=== PATIENT | female | born 2000 | race Caucasian/White ===

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

== ENCOUNTER 2024-04-25 12:09 | Emergency (ER) | payer OTHER, SELFPAY ==
--- NOTE | ~2024-04-25 | XR_ITS ---
EXAMINATION: XR chest 2V DATE: 04/25/2024 14:06 INDICATION: Cough and chest tightness TECHNIQUE: PA and lateral views of the chest were obtained. COMPARISON: None FINDINGS: The lungs are clear with no focal airspace opacities, pulmonary edema, pleural effusion or pneumothor ax. The cardiomediastinal silhouette is normal. Visualized bones and soft tissues are unremarkable. IMPRESSION: 1. No acute cardiopulmonary disease. Reviewed, dictated and finalized at location B. L MANAGER
[2024-04-25 12:13] VITALS: BP 153/104; PULSE 119; RESP 18; TEMP 37.1; O2SAT 99
--- NOTE | 2024-04-25 12:46 | ED_ITS ---
HPI - URI/Sore Throat General Chief Complaint: Upper Respiratory Infection Stated Complaint: URI Time Seen by Provider: 04/25/24 12:46 Focused HPI: This is a 23 year old female that presents to the ER for shortness of breath. Reports chest tightness. Ongoing over the last couple of days. Reports a cough, fever. GENERAL: Well-appearing, well-nourished, and in no acute distress. HEAD: Normocephalic, atraumatic. CHEST: Lung sounds coarse. No respiratory distress. HEART: Regular rate and rhythm.? NEURO: ?Alert and oriented x3. Patient screened in triage and initial orders placed.? ?Additional care and disposition to be based upon?diagnostic testing and treatment. Related Data Allergies Allergy/AdvReac Type Severity Reaction Status Date / Time nickel Allergy Unknown Anaphylaxis Verified 10/05/21 19:22 amoxicillin Allergy Anaphylaxis Verified 10/05/21 19:22 Penicillins Allergy Anaphylaxis Verified 10/05/21 19:22 Review of Systems 2 Review of Systems: CONSTITUTIONAL: Reports fever ENT: Reports congestion RESPIRATORY: Reports cough and dyspnea. All systems reviewed & are unremarkable except as noted in HPI and below PMFSH Past Medical History Medical History (Updated 04/25/24 @ 15:07 by Jazmín Peters PA-C) Healthy female adult Surgical History Surgical History (Updated 10/05/21 @ 19:22 by Jesse Abdullahi MD) History of tonsillectomy Exam 2 Narrative: GENERAL: Well-appearing, well-nourished, and in no acute distress. HEAD: Normocephalic, atraumatic. EYES: EOMI. CHEST: No respiratory distress. Lung sounds coarse, clears with coughing. No rales or rhonchi HEART: Regular rate and rhythm. No murmur heard. Normal peripheral pulses. EXTREMITIES: Normal range of motion. No edema. SKIN: Warm, dry, no rash. NEURO: No focal deficits. Alert and oriented x3. PSYCH: Normal mood and affect Course Course Emergency Course: patient updated on workup and agrees with plan of care Vital Signs Vital signs: Vital Signs Temperature 98.8 F 04/25/24 12:13 Pulse Rate 119 H 04/25/24 12:13 Respiratory Rate 18 04/25/24 12:13 Blood Pressure 153/104 H 04/25/24 12:13 Pulse Oximetry 99 04/25/24 12:13 Temperature 97.6 F 04/25/24 15:07 Pulse Rate 99 04/25/24 15:07 Respiratory Rate 16 04/25/24 15:07 Blood Pressure 149/98 H 04/25/24 15:07 Pulse Oximetry 100 04/25/24 15:07 MDM - URI/Sore Throat MDM Narrative Medical decision making narrative: Patient presents to the ER for cold symptoms present over the last couple of days. She is afebrile and nontoxic appearing. Oxygen saturation is normal on room air. Tachycardic upon arrival. This normalized without intervention. CBC with mild leukocytosis. Metabolic panel with mild transaminitis. COVID test is positive, likely source of liver enzyme elevation. Chest x-ray without acute cardiopulmonary abnormality. Patient updated on her workup and agrees with plan of care. Instructed on further care of viral infection. She is to follow up with primary provider. She was given warnings to return to the ER Differential Diagnosis Differential diagnosis: Likely upper respiratory infection, sinusitis, viral infection, bronchitis, influenza and other (COVID) Lab Data Attestation: I reviewed the patient's lab results. 04/25/24 13:40 04/25/24 13:40 Labs: Lab Results 04/25/24 04/25/24 Range/Units 12:14 13:40 WBC 11.3 H (4.5-10.0) K/mm3 RBC 4.70 (4.2-5.4) M/mm3 Hgb 13.9 (12.0-15.0) g/dL Hct 42.2 (37.0-47.0) % MCV 89.8 (80-100) fl MCH 29.6 (26-34) pg MCHC 32.9 (32-36) g/dl RDW 13.4 (11.5-14.5) % Plt Count 345 (150-375) k/mm3 MPV 8.9 (7.4-10.4) fl Immature Gran % (Auto) 0.4 (0-0.5) % Neut % (Auto) 73.7 H (45.5-73.1) % Lymph % (Auto) 18.8 (18.3-44.2) % Cowley % (Auto) 4.9 (2.6-8.5) % Eos % (Auto) 1.8 (0-4.4) % Baso % (Auto) 0.4 (0.2-1.2) % Lymph # (Auto) 2.13 (0.9-3.2) K/mm3 Cowley # (Auto) 0.6 (0.1-0.6) K/mm3 Eos # (Auto) 0.2 (0-0.3) K/mm3 Baso # (Auto) 0.1 (0.0-0.1) K/mm3 Abs Immat Gran (auto) 0.04 H (0.00-0.031) K/mm3 Absolute Neuts (auto) 8.4 H (1.3-6.7) K/mm3 Absolute Nucleated RBC 0.000 (0.0-0.012) K/mm3 Nucleated RBC % 0.0 (0.0-0.2) % Sodium 141 (137-145) mmol/L Potassium 4.0 (3.4-5.0) mmol/L Chloride 106 (98-107) mmol/L Carbon Dioxide 23 (22-30) mmol/L Anion Gap 12 (4-12) mmol/L BUN 9 (7-17) mg/dL Creatinine 0.50 L (0.7-1.0) mg/dL Estim Creat Clear Calc Not Reportable Estimated GFR > 60 (59 - ) Glucose 132 H (65-110) mg/dL Calcium 9.5 (8.4-10.2) mg/dL Total Bilirubin 0.5 (0.2-1.3) mg/dL AST 54 H (14-36) U/L ALT 64 H (6-35) U/L Alkaline Phosphatase 103 (38-126) U/L Troponin I < 0.012 (0.000-0.034) ng/mL Total Protein 8.0 (6.3-8.2) g/dL Albumin 4.5 (3.5-5.1) g/dL Influenza A (RT-PCR) Negative (Negative) Influenza B (RT-PCR) Negative (Negative) RSV (RT-PCR) Negative (Negative) SARS-CoV-2 RNA (RT-PCR) Positive A (Negative) Imaging Data Radiologist's impression: ITS Impressions Chest X-Ray 04/25/24 14:24 IMPRESSION: 1. No acute cardiopulmonary disease. ECG Data EKG #1: ECG completion date: 04/25/24 EKG Interpretation: tachycardia, sinus rhythm, no ST changes and normal QT Critical Care Time Critical Care Time Critical Care Time: No Discharge Plan Discharge Clinical Impression: COVID-19 Patient Disposition: Home, Self-Care Condition: Stable Instructions: Acute Bronchitis (ED), COVID-19 (Coronavirus Disease 2019) (ED), How to Recover from COVID-19 at Home (ED) Additional Instructions: Return to the emergency department for worsening symptoms, or any other concerns Remain well-hydrated, get plenty of rest. Take Tylenol or Motrin [id number] for pain as needed. Flonase for nasal congestion. Zyrtec for runny nose. Lozenges or Chloraseptic spray for sore throat. Albuterol 2 puffs every 4-6 hours as needed for shortness of breath or wheezing. Take oral steroid as prescribed Follow up with your primary care doctor Patient Language: Hungarian Prescriptions: New prednisone 20 mg tablet 40 mg PO DAILY 5 Days Qty: 10 0RF albuterol sulfate [Ventolin HFA] 90 mcg/actuation HFA aerosol inhaler 2 puff inhalation QID PRN (Reason: shortness of breath or wheezing) Qty: 8.5 0RF No Action naproxen 500 mg tablet 500 mg PO BID Qty: 14 0RF Follow-up/Referrals: Renny,Joel Chang MD [Primary Care Provider] -
--- NOTE | 2024-04-25 12:47 | ECG_ITS ---
Test Date: 2024-04-25 13:40:12 Measurements Intervals [place] Rate: 111 P: 0 GA: 0 QRS: 54 QRSD: 97 T: 3 QT: 336 QTc: 457 Interpretive Statements SINUS TACHYCARDIA No previous ECG available for comparison Electronically Signed On 04-25-2024 14:33:35 STATEMENT CLERKS SUPERVISOR by Attila Leon M.D.
--- OUTSIDE RECORDS SUMMARY | 2024-04-25 12:56 | XMS_ITS | Clinical Summary ---
Author Organization [facility] Address [address] [place] [address] Care Team Providers Care Supervisor Accounts Receivable Name Role Phone Carol Ann Ibanez MD Unavailable [phone] Carol Ann Ibanez MD Primary Care Provider [phone] Source Comments [facility],non-owned Affiliates and Associated Physician Practices is amultiple site organization consisting of ambulatory clinics and hospital sitesin [place], [place], [place] and [place]. This disclosure is being madepursuant to the Care Everywhere program and may not contain all information available regarding this patient. Last updated 17.[facility] Allergies Active Allergy Reactions Criticality Noted Date Comments Amoxicillin Rash Medium 01/08/2020 Nickel Rash Low 11/02/2010 Medications * Be aware that medications may not be up to date on this document. Alwaysverify current medications with the patient. Medication Sig Dispensed Refills Start Date End Date Status atenolol (TENORMIN) 25 MG tablet Take 25 mg by mouth once daily 10/04/2019 Active hydrOXYzine hcl (ATARAX) 25 MG tablet Take 1 (one) tablet by mouth 3 times daily as needed for Itching 30 tablet 05/29/2020 Active Additional Information Patient taking differently:25 mg Oral 3 TIMES DAILY PRN,(No PRN reasons reported), Indications: Anxiety, Informant: Patient, Reported on 06/26/2020 citalopram (CELEXA) 20 MG tablet Take by mouth once daily 05/29/2020 Active famotidine (PEPCID) 20 MG tablet Take 1 (one) tablet by mouth at bedtime 30 tablet 1 06/26/2020 Active Additional Information Patient taking differently:20 mg OralAT BEDTIME PRN, Informant: Patient, Reported on 11/06/2020 cyclobenzaprine (FLEXERIL) 10 MG tablet Take 10 mg by mouth 3 times daily as needed Active naproxen sodium (ANAPROX DS) 550 MG tablet Take 550 mg by mouth every 12 hours as needed 06/30/2020 Active atenolol (TENORMIN) 50 MG tablet Take 50 mg by mouth once daily 07/10/2020 Active levonorgestrel-ethi nyl estradiol (SEASONALE; JOLESSA; QUASENSE) 0.15-0.03 MG tablet Take 1 (one) tablet by mouth once daily 91 tablet 3 11/06/2020 Active sertraline (ZOLOFT) 25 MG tablet TAKE 1 TABLET BY MOUTH EVERY DAY 30 tablet 12/01/2020 Active Active Problems Problem Noted Date Diagnosed Date Weight loss 07/14/2020 Early satiety 07/14/2020 Obstructive sleep apnea 06/26/2020 S/P T&A (status post tonsillectomy and adenoidec [place]) 06/26/2020 Atrial septal defect 02/08/2019 BMI (body mass index), pediatric, 95-99% for age 0609/05/2016 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 Doubt acid peptic disease or nonulcer dyspepsia. Consider NSAID induced gastritis. Consider IBS. Seasonal allergies 12/19/2011 Resolved Problems Problem Noted Date Diagnosed Date Resolved Date Closed fracture of proximal phalanx of toe of right foot 10/10/2017 12/17/2019 Elevated blood pressure read ing without diagnosis of hypertension 03/11/2017 12/17/2019 Chronic abdominal pain 09/05/201612/16 Immunizations Name Administration Dates Next Due INFLUENZA VACCINE, TRIV. (AF LURIA, FLUZONE TRIVALENT; 6MO+) (IIV3) 12/19/2011,12/23/2010 Covid [employer] primary monoval ent 12+ yr 0.3mL Purple cap 08/11/2020,07/21/2020 DTAP/HEP B/IPV 02/04/2003,2002 DTaP VACCINE IM (6wk-6yrs) 01/05/2004,,2002,09/10 HEP A PEDS 2 DOSE 12/19/2011,12/23/2010 HEP B VACCINE, PED/ADOL 02/04/2003,09/10,2002,06/18 HIB BOOSTER 01/05/2004, 3,2002,09/10 HIB VACCINE 01/05/2004, 3,2002,09/10 Human Papilloma Virus Nineva lent Vaccine 03/11/2017,09/01/2016 INFLUENZA VACCINE, QUADR. (F LUZONE; FLULAVAL; FLUARIX; AFLURIA QUADRIVALENT; 6MO+), 0.5 ML (IIV4) 12/17/2019,05/14/2018 MENINGOCOCCAL CONJUGATE (MCV4P) 12/17/2019,10/24 MMR 10/24/2013,11/05/2003 PNEUMOCOCCAL CONJ, PEDS 01/05/2004,02/04,2002,09/10 PNEUMOCOCCAL PCV7 CONJ, PEDS 01/05/2004, 02/04/2003,2002,09/10 POLIO IPV 02/04/2003,2002,2002 TDAP (7yrs+) 10/24/2013 VARICELLA 12/23/2010,11/05/2003 Social History Tobacco Use Types Packs/Day Years Used Date Smoking Tobacco: Passive Smo ke Exposure - Never Smoker Smokeless Tobacco: Never Sex and Gender Information Value Date Recorded Sex Assigned at Female 07/03/2020 1:45 PM CDT Gender Identity Female 07/03/2020 1:45 PM CDT Sexual Orientation Straight 07/03/2020 1: 45 PM CDT Last Filed Vital Signs Vital Sign Reading Time Taken Comments Blood Pressure 129/78 11/06/2020 9:49 AM CDT Pulse 86 11/06/2020 9:49 AM CDT Temperature 36.2 ??C (97.2 ??F) 11/06/2020 9:49 AM CD T Respiratory Rate 20 12/23/2010 9:34 AM CDT Oxygen Saturation - - Inhaled Oxygen Concentration - - Weight 88.5 kg (195 lb 3.2 oz) 11/06/2020 9:49 A M CDT Height 167 cm (5' 5.75 ) 12/17/2019 2:44 PM CDT Body Mass Index - - Plan of Treatment Health Maintenance Due Date Last Done Comments PAP SMEAR 2002 HIV SCREENING 2017 MENINGOCOCCAL (Group B) VACC INE (1 of 2 - Standard) 2018 HEPATITIS C SCREENING 06/13/2020 CHLAMYDIA/GONORRHEA SCREENING 09/07/2021 09/07/2020, 07/14/2020 DTAP/TDAP/TD VACCINES (6 - T d or Tdap) 10/25/2023 10/24/2013, 01/05/2004, 02/04/2003, Additional history exists COVID-19 VACCINE (2023-2 5 season) 2023 08/11/2020, 07/21/2020 INFLUENZA VACCINE (#1) 2023 , 05/14/2018, 12/19/2011, Additional history exists DEPRESSION SCREENING 03/27/2024 10/15/2019, 10/15/19 20 ZOSTER VACCINE (1 of 2) 2052 HEPATITIS B VACCINE Completed 02/04/2003, 02/04/2003, 2002, Additional history exists HIB VACCINE Completed 01/05/2004, 12/25, 02/04/2003, Additional history exists PNEUMOCOCCAL VACCINE Completed 01/05/2004, 01/05/2004, 02/04/2003, Additional history exists HPV VACCINE Completed 03/11/2017, 09/01/2016 MENINGOCOCCAL VACCINE Completed 12/17/2019, 014 Goals Goal Patient Goal Type Associated Problems Recent Progress Patient-Stated? Author Reduce calorie intake Diet No Carol Ann Ibanez MD Note: Caring for Your Overweight Child Eating a healthy diet: ? ? Think of the food your child eats in terms of GO, SLOW, and WHOA foods. They can enjoy GO foods almost any time they like. Limit SLOW foods to certain occasions, no more than a few times per week. And enjoy WHOA foods only on special occasions, and then eat only a small portion. ? ? GO foods include low-fat, low-calorie foods that are also low in added sugar. They tend to be rich in nutrients, such as vitamins, minerals, and other healthy substances. Fresh fruits and vegetables are great examples of GO foods. That said, fried vegetables and fruits canned in syrup, despite their vital ingredients, fall into the category of WHOA foods. Be sure to stock up on GO foods so that you can offer a variety of foods to keep things interesting. ? ? SLOW foods tend to be higher in fat and added sugar than GO foods are. Examples include fruit juices, baked goods made with white, refined flour; and poultry cooked with the skin still on. ? ? WHOA foods are the highest in fat and added sugar. Foods prepared with heavy creams and butter, fried foods, and fatty meats are examples of foods your child should only eat once in a while. ? ? One way to identify unhealthy eating triggers is for your child to keep a journal, in which they writes down the food they ate, where they ate it, the time of day and - extremely important - the reasons for eating. Did they devour two slices of meatball pizza after school because they were truly hungry or because they simply wanted to hang out at the pizza parlor with their friends? If they give the latter reason, perhaps next time the group can split a pizza and she could consciously choose to ? nurse? a single slice, even if everyone else grabs two. Where can I go for more information? [employer] ( ) www.aap.org, HealthyChildren.org www.healthychildren.org Website and free downloadable gene for smartphones: http://www.[employer]/ Use safety retraint in car Lifestyle On track( 020 2:44 PM CDT) No April Hwang RN Procedures Procedure Name Priority Date/Time Associated Diagnosis Comments CHLAMYDIA + GC AMPLIFIED PROBE Routine 09/07/2020 1:24 PM CDT Dysuria from Last 3 Months or Most Recently Relevant to Health Maintenance Results * CHLAMYDIA + GC AMPLIFIED PROBE (09/07/2020 1:24 PM CDT) Chlamydia JACKIE Urine Negative Negative [facility] ACCOUNT BILL GC JACKIE Urine Negative Negative [facility] ACCOUNT BILL Microbiology URINE / Unknown 09/07/2020 1 :24 PM CDT 09/07/2020 Narrative Resulting Agency Comment Lab Testing performed at: [facility] [address] [address] [facility] ??[place] [id number] Carol Ann Ibanez MD LAB - MICROBIOLOGY O RDERABLES [facility] ACCOUNT BILL [id number] [place] [address] from Last 3 Months or Most Recently Relevant to Health Maintenance Care Teams Supervisor Accounts Receivable Relationship Specialty Start Date End Date Carol Ann Ibanez MD PCP - Pediatrics 04/03/09 Carol Ann Ibanze MD PCP - General Pediatrics 10/15/19
--- OUTSIDE RECORDS SUMMARY | 2024-04-25 12:56 | XMS_ITS | Referral Summary ---
Author Organization [facility] Address [address] [place] [address] Care Team Providers Care Wireless Operator Name Role Phone Carol Ann Ibanez MD Unavailable [phone] Carol Ann Ibanez MD Primary Care Provider [phone] Source Comments [facility],non-owned Affiliates and Associated Physician Practices is amultiple site organization consisting of ambulatory clinics and hospital sitesin [place], [place], [place] and [place]. This disclosure is being madepursuant to the Care Everywhere program and may not contain all information available regarding this patient. Last updated 17.[facility] [employer] Allergies Active Allergy Reactions Criticality Noted Date [...] LURIA, FLUZONE TRIVALENT; 6MO+) (IIV3) 12/19/2011,12/23/2010 Covid [employer] primary monoval ent 12+ yr 0.3mL Purple [...] Mass Index - - Plan of Treatment Not on file Goals Goal Patient Goal Type Associated Problems [...] Where can I go for more information? [employer] ( ) www.aap.org, HealthyChildren.org www.healthychildren.org Website and free downloadable gene for smartphones: http://www.[employer]/ Use safety retraint in car Lifestyle On track( 020 2:44 PM CDT) No Lily Hwang RN Procedures Procedure Name Priority Date/Time [...] Agency Comment Lab Testing performed at: [facility] [address] ??[facility] [id number] Carol Ann Ibanez MD LAB - MICROBIOLOGY O RDERABLES [facility] ACCOUNT BILL [id number] [place] [address] from Last 3 Months or Most Recently Relevant to Health Maintenance Care Teams Wireless Operator Relationship Specialty Start Date End Date Carol Ann Ibanez MD PCP - Pediatrics 04/03/09 Carol Ann Ibanez MD PCP - General Pediatrics 10/15/19
--- OUTSIDE RECORDS SUMMARY | 2024-04-25 12:56 | XMS_ITS | Patient Health Summary ---
Author Organization [facility] Address [address] [place] [address] Care Team Providers Care Ela Teacher Name Role Phone Carol Ann Ibanez MD Unavailable [phone] Carol Ann Ibanez MD Primary Care Provider [phone] Note from [facility],non-owned Affiliates and Associated Physician Practices is amultiple site organization consisting of ambulatory clinics and hospital sitesin [place], [place], [place] and [place]. This disclosure is being madepursuant to the Care Everywhere program and may not contain all information available regarding this patient. Last updated 17.[facility] Allergies * Amoxicillin(Rash) -Medium Criticality * Nickel(Rash) -Low Criticality Medications * Be aware that medications may not be up to date on this document. Alwaysverify current medications with the patient. * atenolol (TENORMIN) 25 MG tablet(Started 10/04/2019) Take 25 mg by mouth once daily * hydrOXYzine hcl (ATARAX) 25 MG tablet(Started 05/29/2020) Take 1 (one) tablet by mouth 3 times daily as needed for Itching * citalopram (CELEXA) 20 MG tablet(Started 05/29/2020) Take by mouth once daily * famotidine (PEPCID) 20 MG tablet(Started 06/26/2020) Take 1 (one) tablet by mouth at bedtime 1 refill by 06/26/2021 * cyclobenzaprine (FLEXERIL) 10 MG tablet Take 10 mg by mouth 3 times daily as needed * naproxen sodium (ANAPROX DS) 550 MG tablet(Started 06/30/2020) Take 550 mg by mouth every 12 hours as needed * atenolol (TENORMIN) 50 MG tablet(Started 07/10/2020) Take 50 mg by mouth once daily * levonorgestrel-ethinyl estradiol (SEASONALE; JOLESSA; QUASENSE) 0.15-0.03 MG tablet(Started 11/06/2020) Take 1 (one) tablet by mouth once daily 3 refills by 11/06/2021 * sertraline (ZOLOFT) 25 MG tablet(Started 12/01/2020) TAKE 1 TABLET BY MOUTH EVERY DAY Active Problems Problem Noted Date Diagnosed Date Weight loss 07/14/2020 Early satiety 07/14/2020 Obstructive sleep apnea 06/26/2020 S/P T&A (status post tonsillectomy and adenoidec [place]) 06/26/2020 Atrial septal defect 02/08/2019 BMI (body mass index), pediatric, 95-99% for age 0609/05/2016 Functional abdominal pain syndrome 05/15/2013 Seasonal allergies 12/19/2011 Resolved Problems Problem Noted Date Diagnosed Date Resolved Date Closed fracture of proximal phalanx of toe of right foot 10/10/2017 12/17/2019 Elevated blood pressure read ing without diagnosis of hypertension 03/11/2017 12/17/2019 Chronic abdominal pain 09/05/201612/16 Immunizations * INFLUENZA VACCINE, TRIV. (AFLURIA, FLUZONE TRIVALENT; 6MO+) (IIV3)(Given 12/19/2011, 12/23/2010) * Covid [employer] primary monovalent 12+ yr 0.3mL Purple cap(Given 08/11/2020, 07/21/2020) * DTAP/HEP B/IPV(Given 02/04/2003, 2002) * DTaP VACCINE IM (6wk-6yrs)(Given 01/05/2004, 02/04/2003, 2002, 2002) * HEP A PEDS 2 DOSE(Given 12/19/2011, 12/23/2010) * HEP B VACCINE, PED/ADOL(Given 02/04/2003, 2002, 2002, 2002) * HIB BOOSTER(Given 01/05/2004, 02/04/2003, 2002, 2002) * HIB VACCINE(Given 01/05/2004, 02/04/2003, 2002, 2002) * Human Papilloma Virus Ninevalent Vaccine(Given 03/11/2017, 09/01/2016) * INFLUENZA VACCINE, QUADR. (FLUZONE; FLULAVAL; FLUARIX; AFLURIA QUADRIVALENT; 6MO+), 0.5 ML (IIV4)(Given 12/17/2019, 05/14/2018) * MENINGOCOCCAL CONJUGATE (MCV4P)(Given 12/17/2019, 10/24/2013) * MMR(Given 10/24/2013, 11/05/2003) * PNEUMOCOCCAL CONJ, PEDS(Given 01/05/2004, 02/04/2003, 2002, 2002) * PNEUMOCOCCAL PCV7 CONJ, PEDS(Given 01/05/2004, 02/04/2003, 2002, 2002) * POLIO IPV(Given 02/04/2003, 2002, 2002) * TDAP (7yrs+)(Given 10/24/2013) * VARICELLA(Given 12/23/2010, 11/05/2003) Social History Tobacco Use Types Packs/Day Years [...] PM CDT Body Mass Index - - Procedures * IMAGING/RADIOLOGY/XRAY RESULTS ORDER(Performed 10/05/2021) * IMAGING/RADIOLOGY/XRAY RESULTS ORDER(Performed 10/05/2021) * IMAGING/RADIOLOGY/XRAY RESULTS ORDER(Performed 02/19/2021) * CULTURE URINE(Performed 09/07/2020) Performed for Dysuria * CHLAMYDIA + GC AMPLIFIED PROBE(Performed 09/07/2020) Performed for Dysuria * URINALYSIS AUTO - POINT OF CARE (AMB) STL(Performed 09/07/2020) Performed for Dysuria * URINALYSIS AUTO - POINT OF CARE (AMB) STL(Performed 07/14/2020) Performed for Dysuria * CHLAMYDIA + GC AMPLIFIED PROBE(Performed 07/14/2020) Performed for Dysuria * CULTURE URINE(Performed 07/14/2020) Performed for Dysuria * IMAGING/RADIOLOGY/XRAY RESULTS ORDER(Performed 07/01/2020) * IMAGING/RADIOLOGY/XRAY RESULTS ORDER(Performed 07/01/2020) * IMAGING/RADIOLOGY/XRAY RESULTS ORDER(Performed 07/01/2020) * IMAGING/RADIOLOGY/XRAY RESULTS ORDER(Performed 07/01/2020) * LAB RESULTS ORDER(Performed 06/16/2020) * FERRITIN(Performed 12/27/2019) Performed for Poor sleep * HEMOGLOBIN A1C(Performed 12/27/2019) Performed for BMI (body mass index), pediatric, > 99% for age * VITAMIN D 25-HYDROXY(Performed 12/27/2019) Performed for Poor sleep * LIPID PROFILE(Performed 12/27/2019) Performed for Elevated triglycerides with high cholesterol * LIPID PROFILE+GLUCOSE - POINT OF CARE (AMB)(Performed 12/17/2019) Performed for Well adolescent visit without abnormal findings * INFLUENZA A+B - POINT OF CARE (AMB)(Performed 02/20/2018) Performed for Viral illness * XR TOE RIGHT 2VW OR MORE(Performed 10/30/2017) Performed for Closed fracture of proximal phalanx of toe of right foot * IMAGING/RADIOLOGY/XRAY RESULTS ORDER(Performed 10/03/2017) * TSH+FREE T4 PANEL(Performed 07/03/2017) * FERRITIN(Performed 07/03/2017) Performed for Abnormal menstrual periods * CBC W AUTO DIFFERENTIAL(Performed 07/03/2017) Performed for Abnormal menstrual periods * VITAMIN D 25-HYDROXY(Performed 07/03/2017) Performed for Abnormal menstrual periods * HCG URINE QUALITATIVE - POINT OF CARE (AMB)(Performed 06/27/2017) Performed for Mood change * URINALYSIS - POINT OF CARE(Performed 06/27/2017) Performed for Mood change * URINALYSIS REFLEX MICROSCOPIC REFLEX CULTURE(Performed 03/23/2015) Performed for Dysuria * CULTURE URINE REFLEXED I(Performed 03/23/2015) * STREP A SCREEN - POINT OF CARE (AMB)(Performed 10/27/2014) Performed for Acute pharyngitis, unspecified pharyngitis type * CULTURE URINE(Performed 08/14/2014) Performed for Dysuria * URINALYSIS - POINT OF CARE(Performed 08/14/2014) Performed for Dysuria * URINALYSIS REFLEX MICROSCOPIC REFLEX CULTURE(Performed 03/26/2014) Performed for Dysuria * CULTURE URINE(Performed 03/26/2014) * CULTURE URINE REFLEXED(Performed 03/26/2014) * XR HAND LEFT 2VW(Performed 11/19/2013) Performed for Injury of thumb, left, initial encounter * STREP A SCREEN - POINT OF CARE (AMB)(Performed 08/13/2013) Performed for Sore throat * XR WRIST RIGHT 3VW OR MORE(Performed 04/29/2013) Performed for Right forearm injury * C-REACTIVE PROTEIN(Performed 04/13/2013) Performed for Abdominal pain, unspecified site * ERYTHROCYTE SEDIMENTATION RATE(Performed 04/13/2013) Performed for Abdominal pain, unspecified site * CELIAC DISEASE COMPREHENSIVE(Performed 04/13/2013) Performed for Abdominal pain, unspecified site * COMPREHENSIVE METABOLIC PANEL(Performed 04/13/2013) Performed for Abdominal pain, unspecified site * CBC W AUTO DIFFERENTIAL(Performed 04/13/2013) Performed for Abdominal pain, unspecified site * XR KNEE RIGHT 4VW OR MORE(Performed 06/29/2012) * URINALYSIS - POINT OF CARE(Performed 04/19/2010) Performed for Urgency of urination * STREP A SCREEN - POINT OF CARE (AMB)(Performed 02/04/2010) Performed for Sore throat * CULTURE AEROBIC+GRAM STAIN(Performed 02/04/2010) Performed for Sore throat * STREP A SCREEN - POINT OF CARE (AMB)(Performed 06/19/2009) Performed for Streptococcal Sore Throat Results * IMAGING RADIOLOGY XRAY RESULTS ORDER (10/05/2021) Only the most recent of8 resultswithin the time period is included. Anatomical Region Laterality Modality Other 10/05/2021 Narrative 10/05/2021 Ordered by an unspecified provider. Scanned Document IMAGING * CHLAMYDIA + GC AMPLIFIED PROBE (09/07/2020 1:24 PM CDT) Only the most recent of2 resultswithin the time period is included. Chlamydia JACKIE Urine Negative Negative [facility] ACCOUNT BILL GC JACKIE Urine Negative Negative [facility] ACCOUNT BILL Microbiology URINE / Unknown 09/07/2020 1 :24 PM CDT 09/07/2020 Narrative Resulting Agency Comment Lab Testing performed at: [address] ??[facility] [phone] Carol Ann Ibanez MD LAB - MICROBIOLOGY O RDERABLES Performing Organization Address City/State/[facility] Co de Phone Number [facility] ACCOUNT BILL [address] [place] [address] * (ABNORMAL) CULTURE URINE (09/07/2020 1:24 PM CDT) Only the most recent of4 resultswithin the time period is included. Pathologist [facility] Urine Culture Routine Final report(A) [facility] ACCOUNT BILL Result 1 (A) [facility] ACCOUNT BILL Comment: Proteus mirabilis/penneri Greater than 100,000 colony forming units per mL Cefazolin <=4 ug/mL Cefazolin with an MCKAY <=16 predicts susceptibility to the oral agents cefaclor, cefdinir, cefpodoxime, cefprozil, cefuroxime, cephalexin, and loracarbef when used for therapy of uncomplicated urinary tract infections due to E. coli, Klebsiella pneumoniae, and Proteus mirabilis. Antimicrobial Susceptibility [facility] ACCOUNT BILL Comment: ? S = Susceptible; I = Intermediate; R = Resistant ? P = Positive; N = Negative ?MICS are expressed in micrograms per mL ?? Antibiotic ? RSLT#1 ?RSLT#2 ?RSLT#3 ?RSLT#4 Amoxicillin/Clavulanic Acid ?S Ampicillin ? S Cefepime ? S Ceftriaxone ?S Cefuroxime ? S Ciprofloxacin ?S Ertapenem ?S Gentamicin ? S Levofloxacin ? S Meropenem ?S Nitrofurantoin ? R Piperacillin/Tazobactam ?S Tetracycline ? R Tobramycin ? S Trimethoprim/Sulfa ? S Urine MID-STREAM URINE SPECIMEN / Unknown 09/07/2020 1:24 PM CDT 09/08/2020 Narrative Resulting Agency Comment [facility]: [facility] [place] [address] ??On license of [facility] [phone] Carol Ann Ibanez MD LAB - MICROBIOLOGY O RDERABLES [facility] ACCOUNT BILL [address] [place] [address] * (ABNORMAL) URINALYSIS AUTO - POINT OF CARE (AMB) STL (09/07/2020 1:03 PM CDT) Only the most recent of2 resultswithin the time period is included. Clarity UA POCT Cloudy [facility] Color UA POCT Yellow [facility] Leukocyte UA 2+ Negative [facility] Nitrite UA POCT - Negative [facility] Urobilinogen UA 3.5(A) 0.1 - 1.0 [facility] Protein UA POCT +- Negative [facility] pH UA 7.0 5.0 - 8.0 pH units [facility] Blood UA 2+ Negative [facility] Specific [place] UA POCT 1.05(A) 1.002 - 1.030 [facility] Ketone UA - Negative [facility] Bilirubin UA POCT - Negative [facility] Glucose UA - Negative [facility] Expiration Date - [facility] Lot # - [facility] QC Verified Yes Yes [facility] Urine URINE / Unknown 09/07/2020 1 :03 PM CDT Carol Ann Ibanez MD LAB - POINT OF CARE ORDERABLES [facility] [address] [place] [address] * LAB RESULTS ORDER (06/16/2020) Provider Unknown LAB - THERAPEUTIC DR GARCIA MONITORING ORDERABLES * HEMOGLOBIN A1C (HgbA1C) (12/27/2019 1:51 PM CDT) Hemoglobin A1c 5.6 4.8 - 5.6 % [facility] INSURANCE BILL Comment: ? . ? Prediabetes: 5.7 - 6.4 ? Diabetes: >6.4 ? Glycemic control for adults with diabetes: <7.0 FASTING Blood BLOOD SPECIMEN / Unknown 12/27/2019 1:51 PM CDT 12/27/2019 Narrative Resulting Agency Comment [facility] performed [facility]: [facility] [address] ??On license of [facility] [phone] Carol Ann Ibanez MD LAB - CHEMISTRY FELIX AGUIRRE Performing Organization Address [facility] Co de Phone Number [facility] [address] [place] [address] * (ABNORMAL) VITAMIN D 25-HYDROXY (12/27/2019 1:51 PM CDT) Only the most recent of2 resultswithin the time period is included. Vitamin D, 25 Hydroxy 9.0(L) 30.0 - 100.0 ng/mL [facility] INSURANCE BILL Comment: Vitamin D deficiency has been defined by the [place] of Medicine and an Endocrine Society practice guideline as a level of serum 25-OH vitamin D less than 20 ng/mL (1,2). The Endocrine Society went on to further define vitamin D insufficiency as a level between 21 and 29 ng/mL (2). 1. IOM ([place] of Medicine). 2010. Dietary reference ?? intakes for calcium and D. [place]: The ?? National Academies Press. 2. Jacinta MF, Vince FUCHS, Jenniffer MCLEAN, et al. ?? Evaluation, treatment, and prevention of vitamin D ?? deficiency: an Endocrine Society clinical practice ?? guideline. JCEM. 2010; 96(7):1911-30. FASTING Blood BLOOD SPECIMEN / Unknown 12/27/2019 1:51 PM CDT 12/27/2019 Narrative Resulting Agency Comment Lab Testing performed at: [facility] [address] ??On license of [facility] [phone] Carol Ann Ibanez MD LAB - CHEMISTRY FELIX AGUIRRE [facility] INSURANCE BILL [address] [place] [address] * FERRITIN (12/27/2019 1:51 PM CDT) Only the most recent of2 resultswithin the time period is included. [facility] Ferritin 52 15 - 77 ng/mL [facility] INSURANCE BILL Comment:FASTING Blood BLOOD SPECIMEN / Unknown 12/27/2019 1:51 PM CDT 12/27/2019 Narrative Resulting Agency Comment Lab Testing performed at: [employer] [place] [address] ??On license of [facility] [phone] Carol Ann Ibanez MD LAB - CHEMISTRY FELIX AGUIRRE Performing Organization Address [facility] Co de Phone Number [facility] INSURANCE BILL [address] [place] [address] * (ABNORMAL) LIPID PROFILE (LIPID PANEL) (12/27/2019 1:51 PM CDT) [facility] Cholesterol 181(H) 100 - 169 mg/dL [facility] INSURANCE BILL Triglycerides 197(H) 0 - 89 mg/dL [facility] INSURANCE BILL HDL Cholesterol 32(L) >39 mg/dL [facility] INSURANCE BILL VLDL Calculated 35 5 - 40 mg/dL [facility] INSURANCE BILL LDL Calculated 114(H) 0 - 109 mg/dL [facility] INSURANCE BILL Comment NOT NEEDED [facility] INSURANCE BILL Comment: FASTING Ancillary determined the test is not needed. Blood BLOOD SPECIMEN / Unknown 12/27/2019 1:51 PM CDT 12/27/2019 Narrative Resulting Agency Comment Lab Testing performed at: [facility] [place] [address] ??On license of [facility] [phone] Carol Ann Ibanez MD LAB - CHEMISTRY FELIX AGUIRRE Performing Organization Address City/[facility] Co de Phone Number [facility] INSURANCE BILL [address] [place] [address] * (ABNORMAL) LIPID PROFILE+GLUCOSE - POINT OF CARE (AMB) (12/17/2019 3:04 PM CDT) [facility] QC Verified Yes Yes Cholesterol POCT 227(A) 200 mg/dl HDL POCT 32 mg/dL Triglycerides POCT 242(A) 130 mg/dL LDL 147(A) 130 mg/dl Non HDL Cholesterol POCT 195(A) 145 mg/dL Total Cholesterol/HDL Ratio POCT 7.1(A) 6.0 Glucose 81 70 - 126 mg/dL Blood BLOOD SPECIMEN / Unknown 12/17/2019 3:04 PM CDT Carol Ann Ibanez MD LAB - POINT OF CARE ORDERABLES * INFLUENZA A+B - POINT OF CARE (AMB) (02/20/2018) Influenza A Antigen Rapid Negative Negative Influenza B Antigen Rapid Negative Negative Influenza Internal Control p NEGATIVE - POSITIVE Influenza Lot Number [id number] Influenza Expiration Date 09/02/2019 Other SPECIMEN FROM NASOPHARYNGEAL STRUCTURE / Unknown 02/20/2018 Carol Ann Ibanez MD LAB - POINT OF CARE ORDERABLES * XR TOE RIGHT 2VW OR MORE (10/30/2017) Anatomical Region Laterality Modality Ankle / Foot Other Alexis Sanchez PA-C DIAGNOSTIC IMAGING O RDERABLES * TSH+FREE T4 PANEL (07/03/2017 3:52 PM CDT) TSH 3.500 0.450 - 4.500 uIU/mL [facility] INSURANCE BILL T4 Free 1.26 0.93 - 1.60 ng/dL [facility] INSURANCE BILL 07/03/2017 3:52 PM CDT 07/03/2017 Narrative Resulting Agency Comment [facility] [place] [address] [facility] ??On license of [facility] [phone] Omar Aragon DO LAB - CHEMISTRY ORDERABLES [facility] INSURANCE BILL [address] [place] [address] * (ABNORMAL) CBC W AUTO DIFFERENTIAL (07/03/2017 3:52 PM CDT) Only the most recent of2 resultswithin the time period is included. WBC 9.0 3.4 - 10.8 x10E3/uL [facility] INSURANCE BILL RBC 4.34 3.77 - 5.28 x10E6/uL [facility] INSURANCE BILL Hemoglobin 12.7 11.1 - 15.9 g/dL [facility] INSURANCE BILL Hematocrit 37.9 34.0 - 46.6 % [facility] INSURANCE BILL MCV 87 79 - 97 fL [facility] INSURANCE BILL MCH 29.3 26.6 - 33.0 pg [facility] INSURANCE BILL MCHC 33.5 31.5 - 35.7 g/dL [facility] INSURANCE BILL RDW 13.7 12.3 - 15.4 % [facility] INSURANCE BILL Platelet Count 306 150 - 379 x10E3/uL [facility] INSURANCE BILL Granulocytes % 54 Not Estab. % [facility] INSURANCE BILL Lymphocytes % 37 Not Estab. % [facility] INSURANCE BILL Monocytes % 7 Not Estab. % [facility] INSURANCE BILL Eosinophils % 2 Not Estab. % [facility] INSURANCE BILL Basophils % 0 Not Estab. % [facility] INSURANCE BILL Immature Cells NOT NEEDED [facility] INSURANCE BILL Comment:Ancillary determined the test is not needed Granulocytes Absolute 4.8 1.4 - 7.0 x10E3/uL [facility] INSURANCE BILL Lymphocytes Absolute 3.3(H) 0.7 - 3.1 x10E3/uL [facility] INSURANCE BILL Monocytes Absolute 0.6 0.1 - 0.9 x10E3/uL [facility] INSURANCE BILL Eosinophils Absolute 0.2 0.0 - 0.4 x10E3/uL [facility] INSURANCE BILL Basophils Absolute 0.0 0.0 - 0.3 x10E3/uL [facility] INSURANCE BILL Immature Granulocytes 0 Not Estab. % [facility] INSURANCE BILL Immature Granulocytes Absolute 0.0 0.0 - 0.1 x10E3/uL [facility] INSURANCE BILL nRBC NOT NEEDED [facility] INSURANCE BILL Comment:Ancillary determined the test is not needed Comment Hematology NOT NEEDED [facility] INSURANCE BILL Comment: A hand-written panel/profile was received from your office. In accordance with the [facility] Ambiguous Test Code Policy dated September 2002, we have assigned CBC with Differential/Platelet, Test Code #381629 to this request. If this is not the testing you wished to receive on this specimen, please contact the [facility] Client Inquiry/ Technical Services Department to clarify the test order. We appreciate your business. Ancillary determined the test is not needed Blood BLOOD SPECIMEN / Unknown 07/03/2017 3:52 PM CDT 07/03/2017 Narrative Resulting Agency Comment [facility] [place] [address] ??On license of [facility] [phone] Omar Aragon DO LAB - HEMATOLOG Y ORDERABLES [facility] INSURANCE BILL [address] [place] [address] * HCG URINE QUALITATIVE - POINT OF CARE (AMB) (06/27/2017 4:53 PM CDT) HCG Qual Urine Negative Negative QC Verified Yes Yes Urine URINE / Unknown 06/27/2017 4 :53 PM CDT Omar Aragon DO LAB - POINT OF CARE ORDERABLES * URINALYSIS - POINT OF CARE (06/27/2017 4:52 PM CDT) Only the most recent of3 resultswithin the time period is included. Clarity UA POCT clear Color UA POCT yellow Leukocyte UA - Negative Nitrite UA POCT - Negative Urobilinogen UA 0.2 0.1 - 1.0 Protein UA POCT trace Negative pH UA 6.0 5.0 - 8.0 pH units Blood UA - Negative Specific [place] UA POCT 1.020 1.002 - 1.030 Ketone UA - Negative Bilirubin UA POCT + Negative Glucose UA - Negative Urine URINE / Unknown 06/27/2017 4 :52 PM CDT Omar Aragon DO LAB - POINT OF CARE ORDERABLES * CULTURE URINE REFLEXED I (PO REF LAB) (03/23/2015 2:13 PM DUKEY RIDER) Reflexive Urine Culture NO CULTURE INDICATED [facility] Comment: REPORT COMMENT: FASTING:NO Test Performed at: [facility] [address] [place], [place] ??[phone] MARINA MONTANA DO,MPH 03/23/2015 2:13 PM [facility] RID[facility] 03/23/2015 2:14 PM [facility] RIDER Carol Ann Ibanez MD LAB - MICROBIOLOGY O RDERABLES Performing Organization Address [facility] Co de Phone Number [facility] [id number] [place] [address] * URINALYSIS ROUTINE W/REFLEX TO CULTURE (03/23/2015 2:13 PM DUKEY RIDER) Only the most recent of2 resultswithin the time period is included. Color UA YELLOW YELLOW [facility] Appearance CLEAR CLEAR [facility] Specific [place] UA 1.015 1.001 - 1.035 [facility] pH UA 7.0 5.0 - 8.0 [facility] Glucose UA NEGATIVE NEGATIVE [facility] Bilirubin UA NEGATIVE NEGATIVE [facility] Ketone UA NEGATIVE NEGATIVE [facility] Blood UA NEGATIVE NEGATIVE [facility] Protein UA NEGATIVE NEGATIVE [facility] Nitrite NEGATIVE NEGATIVE [facility] Leukocyte Esterase NEGATIVE NEGATIVE [facility] WBC UA NONE SEEN < OR = 5 /HPF [facility] RBC UA NONE SEEN < OR = 2 /HPF [facility] Epithelial Cell UA NONE SEEN < OR = 5 /HPF [facility] Bacteria UA NONE SEEN NONE SEEN /HPF [facility] Hyaline Casts NONE SEEN NONE SEEN /LPF [facility] Comment: Test Performed at: [facility] [address] [place] [address] ??[phone] MARINA MONTANA DO,MPH Urine specimen (specimen) URINE SPECIMEN OBTAINED BY CLEAN CATCH PROCEDURE / Unknown 03/23/2015 2:13 PM [facility] RID[facility] 03/23/2015 2:14 PM [facility] Carol Ann Ibanez MD LAB - URINALYSIS ORD ERABLES Performing Organization Address [facility] [place] [place] [address] * (ABNORMAL) STREP A SCREEN - POINT OF CARE (AMB) (10/27/2014) Only the most recent of4 resultswithin the time period is included. Strep A Rapid POCT Positive(A ) Negative Strep A Internal Control Other (qualifier value) ENTIRE THROAT (SURFACE REGION OF NECK) / Unknown 10/27/2014 Cathy Littlejohn BELT BUILDER HELPER-HEATING ENGINEER LAB - POINT OF CA RE ORDERABLES * CULTURE URINE REFLEXED (PO REF LAB) (03/26/2014 10:19 AM DUKEY RIDER) Reflexive Urine Culture CULTURE INDICATED - RESULTS TO FOLLOW [facility] Comment: Test Performed at: [facility] [address] [place], [place] ??[phone] MARINA MONTANA DO,MPH 03/26/2014 10:1 9 AM [facility] RIDER 03/26/2014 10:20 AM [facility] RIDER Carol Ann Ibanez MD LAB - MICROBIOLOGY O RDERABLES [facility] [address] [place] [address] * XR HAND 2 VW LEFT (11/19/2013) Anatomical Region Laterality Modality Wrist / Hand Other Andrey Hdez MD DIAGNOSTIC IMAGIN G ORDERABLES * XR WRIST 3+ VW RIGHT (04/29/2013) Anatomical Region Laterality Modality Wrist / Hand Other Carol Ann Ibanez MD DIAGNOSTIC IMAGING O RDERABLES * CELIAC DISEASE COMPREHENSIVE (04/13/2013 10:57 AM DUKEY RIDER) Antigliadin Antibody IgA 2 0 - 19 units [facility] ACCOUNT BILL Comment: ?Negative ? 0 - 19 ?Weak Positive ? 20 - 30 ?Moderate to Strong Positive ?? >30 Gliadin Deamidated Antibody IgG 6 0 - 19 units [facility] ACCOUNT BILL Comment: ?Negative ? 0 - 19 ?Weak Positive ? 20 - 30 ?Moderate to Strong Positive ?? >30 TTG Antibody IgA <2 0 - 3 U/mL [facility] ACCOUNT BILL Comment: ? Negative ?0 - ??3 ? Weak Positive ?? 4 - 10 ? Positive ? >10 ?. ?Tissue Transglutaminase (tTG) has been identified ?as the endomysial antigen. ??Studies have demonstr- ?ated that endomysial IgA antibodies have over 99% ?specificity for gluten sensitive enteropathy. TTG Antibody IgG 3 0 - 5 U/mL [facility] ACCOUNT BILL Comment: ? Negative ?0 - 5 ? Weak Positive ?? 6 - 9 ? Positive ? >9 Endomysial Antibody IgA Negative Negative [facility] ACCOUNT BILL IgA Quantitative 73 62 - 236 mg/dL [facility] ACCOUNT BILL BLOOD SPECIMEN / Unknown 04/13/2013 10:57 AM [facility] RIDER 04/13/2013 1:58 PM [facility] R[facility] Narrative Resulting Agency Comment [facility] [place] [address] ??[place] [phone] Carol Ann Ibanez MD LAB - CHEMISTRY FELIX AGUIRRE [facility] ACCOUNT BILL * C-REACTIVE PROTEIN (CRP) (04/13/2013 10:57 AM DUKEY RIDER) C-Reactive Protein 0.4 0.0 - 4.9 mg/L [facility] ACCOUNT BILL Blood specimen (specimen) BLOOD SPECIMEN / Unknown 04/13/2013 10:57 AM [facility] RIDER 04/13/2013 1:58 PM [facility] RID[facility] Narrative Resulting Agency Comment [facility] [place] [address] ??On license of [facility] [phone] Carol Ann Ibanez MD LAB - CHEMISTRY FELIX AGUIRRE [facility] ACCOUNT BILL * SED RATE AUTO (ESR) (04/13/2013 10:57 AM DUKEY RIDER) Erythrocyte Sedimentation Rate Westergren 9 0 - 32 mm/hr [facility] ACCOUNT BILL Blood specimen (specimen) BLOOD SPECIMEN / Unknown 04/13/2013 10:57 AM [facility]KEY RIDER 04/13/2013 1:58 PM DUKEY RIDER Narrative Resulting Agency Comment [facility] [address] ??On license of [facility] [phone] Carol Ann Ibanez MD [facility] ACCOUNT BILL * (ABNORMAL) COMPREHENSIVE METABOLIC PANEL (04/13/2013 10:57 AM DUKEY RIDER) Glucose 103(H) 65 - 99 mg/dL [facility] ACCOUNT BILL BUN 11 5 - 18 mg/dL [facility] ACCOUNT BILL Creatinine 0.41 0.39 - 0.70 mg/dL [facility] ACCOUNT BILL BUN/Creatinine Ratio 27(H) 9 - 25 [facility] ACCOUNT BILL Sodium 139 134 - 144 mmol/L [facility] ACCOUNT BILL Potassium 4.1 3.5 - 5.2 mmol/L [facility] ACCOUNT BILL Chloride 100 97 - 108 mmol/L [facility] ACCOUNT BILL CO2 24 17 - 26 mmol/L [facility] ACCOUNT BILL Calcium 10.2 9.1 - 10.5 mg/dL [facility] ACCOUNT BILL Protein Total 7.2 6.0 - 8.5 g/dL [facility] ACCOUNT BILL Albumin 4.6 3.5 - 5.5 g/dL [facility] ACCOUNT BILL Globulin Total 2.6 1.5 - 4.5 g/dL [facility] ACCOUNT BILL Albumin/Globulin Ratio 1.8 1.1 - 2.5 [facility] ACCOUNT BILL Bilirubin Total 0.2 0.0 - 1.2 mg/dL [facility] ACCOUNT BILL Alkaline Phosphatase 295 134 - 349 IU/L [facility] ACCOUNT BILL AST 30 0 - 40 IU/L [facility] ACCOUNT BILL ALT 33(H) 0 - 28 IU/L [facility] ACCOUNT BILL Blood specimen (specimen) BLOOD SPECIMEN / Unknown 04/13/2013 10:57 AM DUKEY RIDER 04/13/2013 1:58 PM DUKEY RIDER Narrative Resulting Agency Comment [facility] [address] ??On license of [facility] [phone] Carol Ann Ibanez MD LAB - CHEMISTRY FELIX AGUIRRE Performing Organization Address City/[facility]/ZIP Co de Phone Number [facility] ACCOUNT BILL * XR KNEE 4+ VW RIGHT (06/29/2012) Anatomical Region Laterality Modality Lower Extremity Other Emergency Physician DIAGNOSTIC IMAGING O RDERABLES * CULTURE ROUTINE (02/04/2010 2:40 PM DUKEY RIDER) Aerobic Bacterial Culture Final report [facility] ACCOUNT BILL Result 1 [facility] ACCOUNT BILL Comment:Routine respiratory prerna ENTIRE PHARYNX / Unknown 02/04/2010 2:40 PM DUKEY RIDER 02/04/2010 9:29 PM DUKEY RIDER Narrative Resulting Agency Comment [facility] [address] ??On license of [facility] [id number] Carol Ann Ibanez MD LAB - MICROBIOLOGY O RDERABLES Performing Organization Address City/[facility]/ZIP Co de Phone Number [facility] ACCOUNT BILL Care Teams Ela Teacher Relationship Specialty Start Date End Date Carol Ann Ibanez MD PCP - Pediatrics 04/03/09 Carol Ann Ibanez MD PCP - General Pediatrics 10/15/19
--- OUTSIDE RECORDS SUMMARY | 2024-04-25 12:56 | XMS_ITS | Referral Summary ---
Author Organization [facility] ospital Address [address] [place] [address] Care Team Providers Care Childbirth And Infant Care Teacher Name Role Phone Carol Ann Ibanez MD Primary Care Provider [phone] Allergies Active Allergy Reactions Criticality Noted Date Comments Amoxicillin Rash Medium 01/08/2020 Nickel Rash Medium 05/14/2018 Penicillins Unknown 06/25/2021 Medications citalopram (CeleXA) 40 mg tablet Take 40 mg by mouth every morning. 02/20/2018 Active ergocalciferol (VITAMIN D) 50,000 unit capsule 01/10/2020 Active citalopram (CeleXA) 20 mg tablet TAKE 1 TABLET BY MOUTH EVERY DAY FOR 14 DAYS 05/29/2020 Active sertraline (ZOLOFT) 25 mg tablet Take 25 mg by mouth daily 05/29/2020 Active hydrOXYzine (ATARAX) 25 mg tablet TAKE 1 TABLET BY MOUTH THREE TIMES DAILY NEEDED FOR ITCHING 05/29/2020 Active famotidine (PEPCID) 20 mg tablet Take 20 mg by mouth as needed 06/26/2020 Active cyclobenzaprine (FLEXERIL) 10 mg tablet Take 10 mg by mouth 3 (three) times a day as needed for muscle spasms Active naproxen (ALEVE) 220 mg tablet Take 550 mg by mouth 2 (two) times a day with meals Active atenoloL (TENORMIN) 50 mg tabletIndication s:Hypertension, unspecified type Take 1 tablet (50 mg total) by mouth daily 90 tablet 3 07/10/2020 Active Active Problems Problem Noted Date Diagnosed Date Sleep disturbance 12/31/2019 Overview (12/31/2019): Added automatically from request for surgery [id number] Snoring 12/31/2019 Overview (12/31/2019): Added automatically from request for surgery [id number] Atrial septal defect 02/08/2019 Elevated blood pressure read ing in office without diagnosis of hypertension 10/02/2018 Hypertension 10/02/2018 Depression with anxiety 05/14/2018 Assessment & Plan (05/14/2018 7:48 AM EVP GLOBAL MULT[employer] SALES): Stable. Denies SI/SA. - continue home citalopram Headache 05/14/2018 Assessment & Plan (05/14/2018 7:54 AM EVP [employer] SALES): 17yoF hx sinusitis, fxnl abd pain, depression/anxiety, presenting with sudden onset severe left occipital headache. Description c/f SAH however normal CT obtained within 3hours of sx onset extremely reassuring against this or other intracranial pathology eg mass. Fam hx aneurysm, pt endorses throbbing pain into the neck; concern for aneurysm however complete CTA/CTV of head/neck reassuring. Noted to have possible venous anomaly vs AV fistula of unclear clinical significance; will discuss further w neurology today vs consider discussing with nsgy. Ddx also includes cerebral sinus venous thrombosis, however normal CTV reassuring (note that CT alone may miss 30% of CSVT, but CT in combination with CTV 95% sensitivity). Initial report of isolated elevated blood pressure that has now resolved, low suspicion for hypertensive urgency/emergency. Headache has responded thus far to migraine-type management, consider atypical migraine. Neurologic exam very reassuring. Will continue migraine management as below for now. Discuss utility of brain MRI +/- MRA/MRV with neurology team today. - toradol/compazine/benadryl (05/14- - mIVF, regular diet - MCLEAN precautions [] f/u on possible venous anomaly vs AV fistula; discuss with radiology and/or nsgy [] discuss need for MRI/MRV BMI (body mass index), pediatric, 95-99% for age 0609/05/2016 Functional abdominal pain syndrome 05/15/2013 Overview (07/07/2017): Description: --most likely related to anxiety or functional abdominal pain. Doubt acid peptic disease or nonulcer dyspepsia. Consider NSAID induced gastritis. Consider IBS. Seasonal allergies 12/19/2011 Obstructive sleep apnea S/P T&A (status post tonsillectomy and adenoidec [place]) Immunizations Name Administration Dates Next Due Influenza, Quadrivalent, Spl it, Preservative Free, Intramuscular 12/17/2019,05/14/2018 Social History Tobacco Use Types Packs/Day Years Used Date Smoking Tobacco: Never Smokeless Tobacco: Never Alcohol Use Standard Drinks/Week Comments No 0 (1 standard drink = 0.6 oz pur e alcohol) Comments No Sex and Gender Information Value Date Recorded Sex Assigned at Not on file Legal Sex Female 5:51 AM EVP [employer] Gender Identity Not on file Sexual Orientation Not on file Last Filed Vital Signs Vital Sign Reading Time Taken Comments Blood Pressure 137/95 06/26/2021 12:00 AM CDT Pulse 70 06/26/2021 12:00 AM CDT Temperature 37.1 ??C (98.7 ??F) 06/25/2021 7:09 PM CD T Respiratory Rate 18 06/26/2021 12:00 AM CDT Oxygen Saturation 100% 06/25/2021 7:09 PM CDT Inhaled Oxygen Concentration - - Weight 78 kg (172 lb) 06/25/2021 7:09 PM CDT Height 165.1 cm (5' 5 ) 06/25/2021 7:09 PM CDT Body Mass Index 28.62 06/25/2021 7:09 PM CDT Plan of Treatment Not on file Insurance [facility] CHOICE PLUS [facility] H[facility]PPO Address: [address] [place], [place] [id number] CHOICE PLUS [facility] H[facility]/PPO Address: [address] [place] [address] CHOICE PLUS [facility] H[facility]/PPO Address: [address] [place] [address] Advance Directives For more information, please contact: [phone] * Full Code (Latest Code Status on File) Date Activated Date Inactivated Comments 01/15/2020 5:58 PM 01/16/2020 5:32 PM * Full Code Date Activated Date Inactivated Comments 05/14/2018 6:33 AM 05/14/2018 7:03 PM Care Teams Childbirth And Infant Care Teacher Relationship Specialty Start Date End Date Carol Ann Ibanez MD PCP - General 05/14/18
--- OUTSIDE RECORDS SUMMARY | 2024-04-25 12:56 | XMS_ITS | Clinical Summary ---
Author Organization [facility] ospital Address [address] [place] [address] Care Team Providers Care District Leader Name Role Phone Carol Ann Ibanez MD Primary Care Provider [phone] Allergies Active Allergy Reactions Criticality Noted Date [...] (12/31/2019): Added automatically from request for surgery [id number] Snoring 12/31/2019 Overview (12/31/2019): Added automatically from request for surgery [id number] Atrial septal defect 02/08/2019 Elevated blood pressure read ing in office without diagnosis of hypertension 10/02/2018 Hypertension 10/02/2018 Depression with anxiety 05/14/2018 Assessment & Plan (05/14/2018 7:48 AM PRINT MANAGER): Stable. Denies SI/SA. - continue home citalopram Headache 05/14/2018 Assessment & Plan (05/14/2018 7:54 AM PRINT MANAGER): 17yoF hx sinusitis, fxnl abd pain, depression/anxiety, [...] Quadrivalent, Spl it, Preservative Free, Intramuscular 12/17/2019,05/14/2018 Surgical History Surgery Date Site/Laterality Comments TYMPANOSTOMY TUBE PLACEMENT UPPER GASTROINTESTINAL ENDOSCOPY 02/10/2014 Medical History Medical History Date Comments Depression Anxiety Functional abdominal pain syndrome Diagnosed ~12yo, no active symptoms Allergic Sinusitis Frequent sinusit is, managed by PMD. Hypertension on atenolol, BP 130-140s/70-90s ASD (atrial septal defect) small ASD, evaluated by cardiology 02/08/19, ECG normal, echo small ASD with left to right shunt, No right heart dilation, normal LV size and function, recommend f/u 2 years Obesity Obstructive sleep apnea 02/07/19 sleep study; AHI 86.09, desat to 71% Family History Medical History Relation Name Comments Brain cancer Cousin at age 6. Kidney cancer Maternal Grandfather Family history of malignant neoplasm of kidney - (Added by TW Conv) Anesthesia problems Maternal Grandmother Difficult to wake up Aneurysm Maternal Grandmother 2 brain aneurysms Diabetes Maternal Grandmother Aneurysm Maternal Great-Grandmother d ied in early 60's of brain aneurysm Diabetes Mother Hypertension Mother Diabetes Mother's Brother Aneurysm Mother's Sister 4 brain aneu rysm, sp surgical intervention No Known Problems Sister 1 Anesthesia problems Sister 2 Difficul t to awaken VATER syndrome Sister 2 Migraines Neg Hx Relation Name Status Comments Cousin Maternal Grandfather Maternal Grandmother Maternal Great-Grandmother Mother Alive Mother's Brother Mother's Sister Sister 1 Alive Sister 2 Alive Social History Tobacco Use Types Packs/Day Years Used Date Smoking Tobacco: Never Smokeless Tobacco: Never Alcohol Use Standard Drinks/Week Comments No 0 (1 standard drink = 0.6 oz pur e alcohol) Comments No Sex and Gender Information Value Date Recorded Sex Assigned at Not on file Legal Sex Female 5:51 AM PRINT MANAGER Gender Identity Not on file Sexual Orientation Not on file Obstetrics History Last Filed Vital Signs Vital Sign Reading [...] 06/25/2021 7:09 PM CDT Plan of Treatment Health Maintenance Due Date Last Done Comments Cervical Cancer Screening 2002 Depression Screening 2002 Hepatitis C Screening 2002 Meningococcal B Vaccine (1 o f 2 - Patient Seeks Protection) 2018 Regular Well Visit/Exam 18-64 2020 DTaP/Tdap/Td Vaccine (6 - Td or Tdap) 10/25/2023 10/24/2013, 01/05/2004, 02/04/2003, Additional history exists Covid-19 Vaccine (3 - 2023-2 5 season) 2023 08/11/2020, 07/21/2020 Influenza Vaccine (#1) 2023 0, 05/14/2018, 12/19/2011, Additional history exists Pneumococcal vaccine <65 Completed 004, 02/04/2003, 2002, Additional history exists Varicella Vaccines Completed 12/23/2010, 11/05/2003 HPV Vaccines Completed 03/11/2017, 09/01/2016 Meningococcal Vaccine Completed 12/17/2019, 014 Insurance [facility] CHOICE PLUS CHOICE PLUS CHOICE PLUS Advance Directives For more information, please contact: [phone] * Full Code (Latest Code Status on File) Date Activated Date Inactivated Comments 01/15/2020 5:58 PM 01/16/2020 5:32 PM * Full Code Date Activated Date Inactivated Comments 05/14/2018 6:33 AM 05/14/2018 7:03 PM Care Teams District Leader Relationship Specialty Start Date End Date Carol Ann Ibanez MD PCP - General 05/14/18
[2024-04-25 12:57] LABS: Influenza A QL RT-PCR Negative (Negative); Influenza B QL RT-PCR Negative (Negative); RSV RNA, RT-PCR Negative (Negative); SARS-CoV-2 RNA PCR Positive (Negative)
[2024-04-25 13:47] LABS: Basophils Absolute Auto 0.1 K/mm3 (0.0-0.1); Basophils Percent Auto 0.4 % (0.2-1.2); Eosinophils Absolute Auto 0.2 K/mm3 (0-0.3); Eosinophils Percent Auto 1.8 % (0-4.4); Hematocrit 42.2 % (37.0-47.0); Hemoglobin 13.9 g/dL (12.0-15.0); Immature Granulocyte Absolute 0.04 K/mm3 (0.00-0.031); Immature Granulocyte Percent A 0.4 % (0-0.5); Lymphocytes Absolute Auto 2.13 K/mm3 (0.9-3.2); Lymphocytes Percent Auto 18.8 % (18.3-44.2); Mean Corpuscular HGB Conc 32.9 g/dl (32-36); Mean Corpuscular Hemoglobin 29.6 pg (26-34); Mean Corpuscular Volume 89.8 fl (80-100); Mean Platelet Volume 8.9 fl (7.4-10.4); Monocytes Absolute Auto 0.6 K/mm3 (0.1-0.6); Monocytes Percent Auto 4.9 % (2.6-8.5); Neutrophils Absolute Auto 8.4 K/mm3 (1.3-6.7); Neutrophils Percent Auto 73.7 % (45.5-73.1); Platelet Count Result 345 k/mm3 (150-375); Red Cell Distribution Width 13.4 % (11.5-14.5); White Blood Count 11.3 K/mm3 (4.5-10.0)
[2024-04-25 14:12] LABS: Alanine Aminotransferase 64 U/L (6-35); Albumin Level 4.5 g/dL (3.5-5.1); Alkaline Phosphatase 103 U/L (38-126); Anion Gap 12 mmol/L (4-12); Aspartate Amino Transferase 54 U/L (14-36); Bilirubin,Total 0.5 mg/dL (0.2-1.3); Blood Urea Nitrogen 9 mg/dL (7-17); Calcium 9.5 mg/dL (8.4-10.2); Carbon Dioxide 23 mmol/L (22-30); Chloride 106 mmol/L (98-107); Estimated Glomerular Filt Rate > 60; Glucose 132 mg/dL (65-110); Sodium 141 mmol/L (137-145)
[2024-04-25 14:24] LABS: Troponin I < 0.012 ng/mL (0.000-0.034)
--- OUTSIDE RECORDS SUMMARY | 2024-04-25 15:03 | XMS_ITS | Patient Health Summary ---
Author Organization [facility] Address [address] [place] [address] Care Team Providers Care Jewelry Drilling Machine Operator Name Role Phone Carol Ann Ibanez MD Unavailable [phone] Carol Ann Ibanez MD Primary Care Provider [phone] [facility],non-owned Affiliates and Associated Physician Practices is amultiple site organization consisting of ambulatory clinics and hospital sitesin [place], [place], [place] and [place]. This disclosure is being madepursuant to the Care Everywhere program and may not contain all information available regarding this patient. Last updated 17.[facility] Allergies * Amoxicillin(Rash) -Medium Criticality [...] TRIVALENT; 6MO+) (IIV3)(Given 12/19/2011, 12/23/2010) * Covid [employer] primary monovalent 12+ yr 0.3mL Purple [...] Resulting Agency Comment Lab Testing performed at: [address] ??[facility] [id number] Carol Ann Ibanez MD LAB - MICROBIOLOGY O RDERABLES Performing Organization Address City/State/[facility] Co de Phone Number [facility] ACCOUNT BILL [address] [place] [address] * (ABNORMAL) CULTURE URINE (09/07/2020 1:24 PM CDT) Only the most recent of4 resultswithin the time period is included. Pathologist [facility] Urine Culture Routine Final report(A) [facility] ACCOUNT [...] Resulting Agency Comment [facility]: [facility] [place] [address] ??[facility]ly [facility] [phone] Carol Ann Ibanez MD LAB - MICROBIOLOGY O RDERABLES [facility] ACCOUNT BILL [address] [place] [address] * (ABNORMAL) URINALYSIS AUTO - POINT OF CARE (AMB) STL (09/07/2020 1:03 PM CDT) Only the most recent of2 resultswithin the time period is included. Clarity UA POCT Cloudy [facility] Color UA POCT Yellow [facility] Leukocyte UA 2+ Negative [facility] Nitrite UA POCT - Negative [facility] Urobilinogen UA 3.5(A) 0.1 - 1.0 [facility] Protein UA POCT +- Negative [facility] pH UA 7.0 5.0 - 8.0 pH units [facility] Blood UA 2+ Negative [facility] Specific Bend UA POCT 1.05(A) 1.002 - 1.030 [facility] Ketone UA - Negative [facility] Bilirubin UA POCT - Negative [facility] Glucose UA - Negative [facility] Expiration Date - [facility] Lot # - [facility] QC Verified Yes Yes [facility] Urine URINE / Unknown 09/07/2020 1 :03 PM CDT Carol Ann Ibanez MD LAB - POINT OF CARE ORDERABLES [facility] [address] [place] [address] * LAB RESULTS ORDER (06/16/2020) Provider Unknown [...] Resulting Agency Comment [email or web address] [address] ??[facility]ly [facility] [phone] Carol Ann Ibanez MD LAB - CHEMISTRY FELIX AGUIRRE Performing Organization Address [facility] Co de Phone Number [facility] INS[facility] B[facility] [address] [place] [address] * (ABNORMAL) VITAMIN D 25-HYDROXY (12/27/2019 1:51 PM CDT) Only the most recent of2 resultswithin the time period is included. Vitamin D, 25 Hydroxy 9.0(L) 30.0 - 100.0 ng/mL [facility] INSURANCE BILL Comment: Vitamin D deficiency has been defined by the [place] of Medicine and an Endocrine Society practice guideline as a level of serum 25-OH vitamin D less than 20 ng/mL (1,2). The Endocrine Society went on to further define vitamin D insufficiency as a level between 21 and 29 ng/mL (2). 1. IOM ([place] of Medicine). 2010. Dietary reference ?? intakes [...] Resulting Agency Comment Lab Testing performed at: [email or web address] [address] ??[facility]ly [facility] [phone] Carol Ann Ibanez MD LAB - CHEMISTRY FELIX AGUIRRE [facility] INSURANCE BILL [address] [place] [address] * FERRITIN (12/27/2019 1:51 PM CDT) Only the most recent of2 resultswithin the time period is included. [facility] Ferritin 52 15 - 77 ng/mL [facility] INSURANCE BILL Comment:FASTING Blood BLOOD SPECIMEN / Unknown 12/27/2019 1:51 PM CDT 12/27/2019 Narrative Resulting Agency Comment Lab Testing performed at: [facility] [place] [address] ??[facility]ly [facility] [phone] Carol Ann Ibanez MD LAB - CHEMISTRY FELIX AGUIRRE Performing Organization Address [facility] Co de Phone Number [facility] INSURANCE BILL [address] [place] [address] * (ABNORMAL) LIPID PROFILE (LIPID PANEL) (12/27/2019 1:51 PM CDT) [facility] Cholesterol 181(H) 100 - 169 mg/dL [facility] [...] Resulting Agency Comment Lab Testing performed at: [email or web address] [place] [address] ??[facility]ly [facility] [phone] Carol Ann Ibanez MD LAB - CHEMISTRY FELIX AGUIRRE Performing Organization Address City/[facility] Co de Phone Number [facility] INSURANCE BILL [address] [place] [address] * (ABNORMAL) LIPID PROFILE+GLUCOSE - POINT OF CARE (AMB) (12/17/2019 3:04 PM CDT) [facility] QC Verified Yes Yes Cholesterol POCT 227(A) [...] CDT 07/03/2017 Narrative Resulting Agency Comment [facility] [place] [address] [facility] ??[facility]ly [facility] [phone] Omar Aragon DO LAB - CHEMISTRY ORDERABLES [facility] INSURANCE BILL [address] [place] [address] * (ABNORMAL) CBC W AUTO DIFFERENTIAL (07/03/2017 [...] have assigned CBC with Differential/Platelet, Test Code #[id number] to this request. If this is not the testing you wished to receive on this specimen, please contact the [email or web address] Client Inquiry/ Technical Services Department to clarify the test order. We appreciate your business. Ancillary determined the test is not needed Blood BLOOD SPECIMEN / Unknown 07/03/2017 3:52 PM CDT 07/03/2017 Narrative Resulting Agency Comment [facility] [place] [address] ??[facility]ly [facility] [phone] Omar Aragon DO LAB - HEMATOLOG Y ORDERABLES [facility] INSURANCE BILL [address] [place] [address] * HCG URINE QUALITATIVE - POINT OF [...] pH units Blood UA - Negative Specific Bend UA POCT 1.020 1.002 - 1.030 Ketone UA - Negative Bilirubin UA POCT + Negative Glucose UA - Negative Urine URINE / Unknown 06/27/2017 4 :52 PM CDT Omar Aragon DO LAB - POINT OF CARE ORDERABLES * CULTURE URINE REFLEXED I (PO REF LAB) (03/23/2015 2:13 PM TUMBLER MACHINE OPERATOR HELPER) Reflexive Urine Culture NO CULTURE INDICATED [facility] Comment: REPORT COMMENT: FASTING:NO Test Performed at: [facility] [place] [address] [place], [place] ??[address] MARINA MONTANA DO,MPH 03/23/2015 2:13 PM TUMBLER MACHINE OPERATOR HELPER 03/23/2015 2:14 PM TUMBLER MACHINE OPERATOR HELPER Carol Ann Ibanez MD LAB - MICROBIOLOGY O RDERABLES Performing Organization Address [facility] Co de Phone Number [facility] [id number] [place] [address] * URINALYSIS ROUTINE W/REFLEX TO CULTURE (03/23/2015 2:13 PM TUMBLER MACHINE OPERATOR HELPER) Only the most recent of2 resultswithin the time period is included. Color UA YELLOW YELLOW [facility] Appearance CLEAR CLEAR [facility] Specific Bend UA 1.015 1.001 - 1.035 [facility] pH [...] SEEN /LPF [facility] Comment: Test Performed at: [address] [place] [address] ??[phone] MARINA MONTANA DO,MPH Urine specimen (specimen) URINE SPECIMEN OBTAINED BY CLEAN CATCH PROCEDURE / Unknown 03/23/2015 2:13 PM TUMBLER MACHINE OPERATOR HELPER 03/23/2015 2:14 PM TUMBLER MACHINE OPERATOR HELPER Carol Ann Ibanez MD LAB - URINALYSIS ORD ERABLES Performing Organization Address [facility] [place] [address] * (ABNORMAL) STREP A SCREEN - POINT OF CARE (AMB) (10/27/2014) Only the most recent of4 resultswithin the time period is included. Strep A Rapid POCT Positive(A ) Negative Strep A Internal Control Other (qualifier value) ENTIRE THROAT (SURFACE REGION OF NECK) / Unknown 10/27/2014 Cathy Littlejohn NUCLEAR WEAPONS CUSTODIAN-SOCK IRONER LAB - POINT OF CA RE ORDERABLES * CULTURE URINE REFLEXED (PO REF LAB) (03/26/2014 10:19 AM TUMBLER MACHINE OPERATOR HELPER) Reflexive Urine Culture CULTURE INDICATED - RESULTS TO FOLLOW [facility] Comment: Test Performed at: [facility] [place] [address] [place], [place] ??[address] MARINA MONTANA DO,MPH 03/26/2014 10:1 9 AM TUMBLER MACHINE OPERATOR HELPER 03/26/2014 10:20 AM TUMBLER MACHINE OPERATOR HELPER Carol Ann Ibanez MD LAB - MICROBIOLOGY O RDERABLES [facility] [address] [place] [address] * XR HAND 2 VW LEFT (11/19/2013) Anatomical Region Laterality Modality Wrist / Hand Other Andrey Hdez MD DIAGNOSTIC IMAGIN G ORDERABLES * XR WRIST 3+ VW RIGHT (04/29/2013) Anatomical Region Laterality Modality Wrist / Hand Other Carol Ann Ibanez MD DIAGNOSTIC IMAGING O RDERABLES * CELIAC DISEASE COMPREHENSIVE (04/13/2013 10:57 AM TUMBLER MACHINE OPERATOR HELPER) Antigliadin Antibody IgA 2 0 - 19 [...] BLOOD SPECIMEN / Unknown 04/13/2013 10:57 AM TUMBLER MACHINE OPERATOR HELPER 04/13/2013 1:58 PM TUMBLER MACHINE OPERATOR HELPER Narrative Resulting Agency Comment [facility] [place] [address] ??[place] [phone] Carol Ann Ibanez MD LAB - CHEMISTRY FELIX AGUIRRE [facility] ACCOUNT BILL * C-REACTIVE PROTEIN (CRP) (04/13/2013 10:57 AM TUMBLER MACHINE OPERATOR HELPER) C-Reactive Protein 0.4 0.0 - 4.9 mg/L [facility] ACCOUNT BILL Blood specimen (specimen) BLOOD SPECIMEN / Unknown 04/13/2013 10:57 AM TUMBLER MACHINE OPERATOR HELPER 04/13/2013 1:58 PM TUMBLER MACHINE OPERATOR HELPER Narrative Resulting Agency Comment [facility] [place] [address] ??[facility]ly [facility] [phone] Carol Ann Ibanez MD LAB - CHEMISTRY FELIX AGUIRRE [facility] ACCOUNT BILL * SED RATE AUTO (ESR) (04/13/2013 10:57 AM TUMBLER MACHINE OPERATOR HELPER) Erythrocyte Sedimentation Rate Westergren 9 0 - 32 mm/hr [facility] ACCOUNT BILL Blood specimen (specimen) BLOOD SPECIMEN / Unknown 04/13/2013 10:57 AM TUMBLER MACHINE OPERATOR HELPER 04/13/2013 1:58 PM TUMBLER MACHINE OPERATOR HELPER Narrative Resulting Agency Comment [facility] [address] ??[facility]ly [facility] [phone] Carol Ann Ibanez MD LAB - [facility]ATOLOGY [facility]D [facility] ACCOUNT BILL * (ABNORMAL) COMPREHENSIVE METABOLIC PANEL (04/13/2013 10:57 AM TUMBLER MACHINE OPERATOR HELPER) Glucose 103(H) 65 - 99 mg/dL [facility] [...] BLOOD SPECIMEN / Unknown 04/13/2013 10:57 AM TUMBLER MACHINE OPERATOR HELPER 04/13/2013 1:58 PM TUMBLER MACHINE OPERATOR HELPER Narrative Resulting Agency Comment [facility] [address] ??[facility]ly [facility] [phone] Carol Ann Ibanez MD LAB - CHEMISTRY FELIX AGUIRRE Performing Organization Address City/[facility]/ZIP Co de Phone Number [facility] ACCOUNT BILL * XR KNEE 4+ VW RIGHT (06/29/2012) Anatomical Region Laterality Modality Lower Extremity Other Emergency Physician DIAGNOSTIC IMAGING O RDERABLES * CULTURE ROUTINE (02/04/2010 2:40 PM TUMBLER MACHINE OPERATOR HELPER) Aerobic Bacterial Culture Final report [facility] ACCOUNT BILL Result 1 [facility] ACCOUNT BILL Comment:Routine respiratory prerna ENTIRE PHARYNX / Unknown 02/04/2010 2:40 PM TUMBLER MACHINE OPERATOR HELPER 02/04/2010 9:29 PM TUMBLER MACHINE OPERATOR HELPER Narrative Resulting Agency Comment [facility] [address] ??[facility] [phone] Carol Ann Ibanez MD LAB - MICROBIOLOGY O RDERABLES Performing Organization Address City/[facility]/ZIP Co de Phone Number [facility] ACCOUNT BILL Care Teams Jewelry Drilling Machine Operator Relationship Specialty Start Date End Date Carol Ann Ibanez MD PCP - Pediatrics 04/03/09 Carol Ann Ibanez MD PCP - General Pediatrics 10/15/19
--- OUTSIDE RECORDS SUMMARY | 2024-04-25 15:03 | XMS_ITS | Clinical Summary ---
Author Organization [facility] osp[facility] Address [address] [place] [address] Care Team Providers Care Seasonal Tax Preparer Name Role Phone Carol Ann Ibanez MD Primary Care Provider [phone] Allergies Active Allergy Reactions Criticality Noted Date [...] (12/31/2019): Added automatically from request for surgery [id number] Snoring 12/31/2019 Overview (12/31/2019): Added automatically from request for surgery [id number] Atrial septal defect 02/08/2019 Elevated blood pressure read ing in office without diagnosis of hypertension 10/02/2018 Hypertension 10/02/2018 Depression with anxiety 05/14/2018 Assessment & Plan (05/14/2018 7:48 AM TRIMMER AND BORER MACHINE OPERATOR): Stable. Denies SI/SA. - continue home citalopram Headache 05/14/2018 Assessment & Plan (05/14/2018 7:54 AM TRIMMER AND BORER MACHINE OPERATOR): 17yoF hx sinusitis, fxnl abd pain, depression/anxiety, [...] on file Legal Sex Female 5:51 AM TRIMMER AND BORER MACHINE OPERATOR Gender Identity Not on file Sexual Orientation [...] 09/01/2016 Meningococcal Vaccine Completed 12/17/2019, 014 Insurance [facility] CHOICE PLUS CHOICE PLUS CHOICE PLUS Advance Directives For more information, please contact: [phone] * Full Code (Latest Code Status on File) Date Activated Date Inactivated Comments 01/15/2020 5:58 PM 01/16/2020 5:32 PM * Full Code Date Activated Date Inactivated Comments 05/14/2018 6:33 AM 05/14/2018 7:03 PM Care Teams Seasonal Tax Preparer Relationship Specialty Start Date End Date Carol Ann Ibanez MD PCP - General 05/14/18
--- OUTSIDE RECORDS SUMMARY | 2024-04-25 15:03 | XMS_ITS | Clinical Summary ---
Author Organization [facility] Address [address] [place] [address] Care Team Providers Care Gameroom Technician Name Role Phone Carol Ann Ibanez MD Unavailable [phone] Carol Ann Ibanez MD Primary Care Provider [phone] Source Comments [facility],non-owned Affiliates and Associated Physician Practices is amultiple site organization consisting of ambulatory clinics and hospital sitesin [place], [place], [place] and [place]. This disclosure is being madepursuant to the Care Everywhere program and may not contain all information available regarding this patient. Last updated 17.[facility] [address] Allergies Active Allergy Reactions Criticality Noted Date [...] LURIA, FLUZONE TRIVALENT; 6MO+) (IIV3) 12/19/2011,12/23/2010 Covid Repairy primary monoval ent 12+ yr 0.3mL Purple [...] Where can I go for more information? [place] [employer] ( ) www.aap.org, HealthyChildren.org www.healthychildren.org Website and free downloadable gene for smartphones: http://www.iPerceptions/ Use safety retraint in car Lifestyle On [...] Agency Comment Lab Testing performed at: [facility] [address] [facility] ??[place] [id number] Carol Ann Ibanez MD LAB - MICROBIOLOGY O RDERABLES [facility] ACCOUNT BILL [address] [place] [address] from Last 3 Months or Most Recently Relevant to Health Maintenance Care Teams Gameroom Technician Relationship Specialty Start Date End Date Carol Ann Ibanez MD PCP - Pediatrics 04/03/09 Carol Ann Ibanez MD PCP - General Pediatrics 10/15/19
--- OUTSIDE RECORDS SUMMARY | 2024-04-25 15:03 | XMS_ITS | Referral Summary ---
Author Organization [facility] Address [address] [facility] [place] [address] Care Team Providers Care Money Position Officer Name Role Phone Carol Ann Ibanez MD Unavailable [phone] Carol Ann Ibanez MD Primary Care Provider [phone] Source Comments [facility],non-owned Affiliates and Associated Physician Practices is amultiple site organization consisting of ambulatory clinics and hospital sitesin [place], [place], [place] and [place]. This disclosure is being madepursuant to the Care Everywhere program and may not contain all information available regarding this patient. Last updated 17.[facility] [email or web address] Allergies Active Allergy Reactions Criticality Noted Date [...] LURIA, FLUZONE TRIVALENT; 6MO+) (IIV3) 12/19/2011,12/23/2010 Covid HealthyTweet primary monoval ent 12+ yr 0.3mL Purple [...] Where can I go for more information? [place] [employer] ( ) www.aap.org, HealthyChildren.org www.healthychildren.org Website and free downloadable gene for smartphones: http://www.[employer] Use safety retraint in car Lifestyle On [...] Agency Comment Lab Testing performed at: [facility] [address] ??[facility] [id number] Carol Ann Ibanez MD LAB - MICROBIOLOGY O RDERABLES [facility] ACCOUNT BILL [address] [place] [address] from Last 3 Months or Most Recently Relevant to Health Maintenance Care Teams Money Position Officer Relationship Specialty Start Date End Date Carol Ann Ibanez MD PCP - Pediatrics 04/03/09 Carol Ann Ibanez MD PCP - General Pediatrics 10/15/19
--- OUTSIDE RECORDS SUMMARY | 2024-04-25 15:03 | XMS_ITS | Referral Summary ---
Author Organization [facility] Address [address] [place] [address] Care Team Providers Care Bridal Consultant Name Role Phone Carol Ann Ibanez MD Primary Care Provider [phone] Allergies Active Allergy Reactions Criticality Noted Date [...] (12/31/2019): Added automatically from request for surgery [id number] Snoring 12/31/2019 Overview (12/31/2019): Added automatically from request for surgery [id number] Atrial septal defect 02/08/2019 Elevated blood pressure read ing in office without diagnosis of hypertension 10/02/2018 Hypertension 10/02/2018 Depression with anxiety 05/14/2018 Assessment & Plan (05/14/2018 7:48 AM SOLAR PHOTOVOLTAIC ELECTRICIAN): Stable. Denies SI/SA. - continue home citalopram Headache 05/14/2018 Assessment & Plan (05/14/2018 7:54 AM SOLAR PHOTOVOLTAIC ELECTRICIAN): 17yoF hx sinusitis, fxnl abd pain, depression/anxiety, [...] on file Legal Sex Female 5:51 AM SOLAR PHOTOVOLTAIC ELECTRICIAN Gender Identity Not on file Sexual Orientation [...] Plan of Treatment Not on file Insurance [facility] CHOICE PLUS [id number] CHOICE PL[facility] CHOICE PLUS Advance Directives For more information, please contact: [phone] * Full Code (Latest Code Status on File) Date Activated Date Inactivated Comments 01/15/2020 5:58 PM 01/16/2020 5:32 PM * Full Code Date Activated Date Inactivated Comments 05/14/2018 6:33 AM 05/14/2018 7:03 PM Care Teams Bridal Consultant Relationship Specialty Start Date End Date Carol Ann Ibanez MD PCP - General 05/14/18
[2024-04-25 15:07] VITALS: BP 149/98; PULSE 99; RESP 16; TEMP 36.4; O2SAT 100
== END 2024-04-25 15:12 | disposition home or self-care (01) ==
PROVIDERS: Emergency Provider Physician Assistant; PCP Family Medicine Sports Medicine
DX: U07.1 COVID-19 (principal); R00.0 Tachycardia, unspecified
CPT/HCPCS: 36415; 71046; 80053; 84484; 85025; 87637; 93005; 99284

== ENCOUNTER 2024-12-27 09:50 | Emergency (ER) | payer OTHER, SELFPAY ==
[2024-12-27] VITALS (9 sets, daily range): BP systolic 127–151; BP diastolic 71–93; PULSE 80–88; RESP 14–16; TEMP 36.6–36.8; O2SAT 96–100
--- NOTE | ~2024-12-27 | CT_ITS ---
EXAMINATION: CT lumbar spine wo con DATE: 12/27/2024 11:20 INDICATION: Trauma. TECHNIQUE: Computed tomography (CT) of the lumbar spine was performed without intravenous contrast. Automated exposure control and iterative reconstruction technique were employed. The dose-length product was 1215.43 mGy-cm. COMPARISON: None FINDINGS: There is 8 degrees dextrocurvature of lower lumbar spine. Vertebral body heights are normal. There is mildly decreased disc height at L4-L5. The following disc levels are specifically discussed: L1-L2: The disc does not extend beyond the endplate margin. There is mild bilateral facet joint osteoarthritis. There is no neural foraminal stenosis. There is no central canal stenosis. L2-L3: The disc does not extend beyond the endplate margin. There is mild bilateral facet joint osteoarthritis. There is no neural foraminal stenosis. There is no central canal stenosis. L3-L4: The disc is bulging. There is mild bilateral facet joint osteoarthritis. There is mild bilateral neural foraminal stenosis. There is mild central canal stenosis. L4-L5: The disc is bulging. There is mild bilateral facet joint osteoarthritis. There is mild bilateral neural foraminal stenosis. There is mild central canal stenosis. L5-S1: The disc is bulging. There is moderate bilateral facet joint osteoarthritis. There is mild bilateral neural foraminal stenosis. There is mild central canal stenosis. IMPRESSION: 1. No fracture. 2. Mild lumbar spondylosis. Reviewed, dictated and finalized at location E.
--- OUTSIDE RECORDS SUMMARY | 2024-12-27 09:58 | XMS_ITS | Clinical Summary ---
Author Organization [facility] Address [address] [facility] [place] [address] Care Team Providers Care Boxing Machine Operator Name Role Phone Carol Ann Ibanez MD Unavailable [phone] Carol Ann Ibanez MD Primary Care Provider Source Comments [facility],non-owned Affiliates and Associated Physician Practices is amultiple site organization consisting of ambulatory clinics and hospital sitesin [place], [place], [place] and [place]. This disclosure is being madepursuant to the Care Everywhere program and may not contain all information available regarding this patient. Last updated 17.[facility] Allergies Active Allergy Reactions Criticality Noted Date Comments Amoxicillin Rash Medium 01/08/2020 Nickel Rash Low 11/02/2010 Medications * Be aware that medications may not be up to date on this document. Alwaysverify current medications with the patient. atenolol (TENORMIN) 25 MG tablet Take 25 mg by mouth once daily 0 Active hydrOXYzine hcl (ATARAX) 25 MG tablet Take 1 (one) tablet by mouth 3 times daily as needed for Itching 30 tablet 1 Active Additional Information Patient taking differently:25 mg Oral 3 TIMES DAILY PRN,(No PRN reasons reported), Indications: Anxiety, Informant: Patient, Reported on 06/26/2020 citalopram (CELEXA) 20 MG tablet Take by mouth once daily 1 Active famotidine (PEPCID) 20 MG tablet Take 1 (one) tablet by mouth at bedtime 30 tablet 1 1 Active Additional Information Patient taking differently:20 mg OralAT BEDTIME PRN, Informant: Patient, Reported on 11/06/2020 cyclobenzaprine (FLEXERIL) 10 MG tablet Take 10 mg by mouth 3 times daily as needed Active naproxen sodium (ANAPROX DS) 550 MG tablet Take 550 mg by mouth every 12 hours as needed 1 Active atenolol (TENORMIN) 50 MG tablet Take 50 mg by mouth once daily 1 Active levonorgestrel- ethinyl estradiol (SEASONALE; JOLESSA; QUASENSE) 0.15-0.03 MG tablet Take 1 (one) tablet by mouth once daily 91 tablet 3 1 Active sertraline (ZOLOFT) 25 MG tablet TAKE 1 TABLET BY MOUTH EVERY DAY 30 tablet 1 Active Active Problems Problem Noted Date Diagnosed [...] 03/11/2017 12/17/2019 Chronic abdominal pain 09/05/201612/16 Immunizations Immunization Administration Dates Next Due INFLUENZA VACCINE, TRIV. (AF LURIA, FLUZONE TRIVALENT; 6MO+) (IIV3) 12/19/2011,12/23/2010 Covid Vigilistics primary monoval ent 12+ yr 0.3mL Purple cap 08/11/2020,07/21/2020 DTAP/HEP B/IPV 02/04/2003,2002 DTaP VACCINE IM (6wk-6yrs) 01/05/2004,,2002,09/10 HEP A PEDS 2 DOSE 12/19/2011,12/23/2010 HEP B VACCINE, PED/ADOL 02/04/2003,09/10,2002,06/18 HIB BOOSTER 01/05/2004, 3,2002,09/10 HIB VACCINE 01/05/2004, 3,2002,09/10 Human Papilloma Virus Nineva lent Vaccine 03/11/2017,09/01/2016 INFLUENZA VACCINE, QUADR. (F LUZONE; FLULAVAL; FLUARIX; AFLURIA QUADRIVALENT; 6MO+), 0.5 ML (IIV4) 12/17/2019,05/14/2018 MENINGOCOCCAL ACWY (MCV4P) VAC IM 12/17/2019, MMR 10/24/2013,11/05/2003 PNEUMOCOCCAL CONJ, PEDS 01/05/2004,02/04,2002,09/10 PNEUMOCOCCAL PCV7 CONJ, PEDS 01/05/2004, 02/04/2003,2002,09/10 POLIO IPV 02/04/2003,2002,2002 TDAP (7yrs+) 10/24/2013 VARICELLA 12/23/2010,11/05/2003 Social History Tobacco Use Types Packs/Day Years Used Date Smoking Tobacco: Passive Smo ke Exposure - Never Smoker Smokeless Tobacco: Never Comments No Sex and Gender Information Value Date Recorded Sex Assigned at Female 07/03/2020 1:45 PM CDT Legal Sex Female 6:45 AM SUSTAINABILITY COACH Gender Identity Female 07/03/2020 1:45 PM CDT Sexual Orientation Straight 07/03/2020 1: 45 PM CDT Last Filed Vital Signs Vital Sign Reading Time Taken Comments Blood Pressure 129/78 11/06/2020 9:49 AM CDT Pulse 86 11/06/2020 9:49 AM CDT Temperature 36.2 C (97.2 F) 11/06/2020 9:49 AM CDT Respiratory Rate 20 12/23/2010 9:34 AM CDT Oxygen Saturation - - Inhaled Oxygen Concentration - - Weight 88.5 kg (195 lb 3.2 oz) 11/06/2020 9:49 A M CDT Height 167 cm (5' 5.75) 12/17/2019 2:44 PM CDT Body Mass Index - - Plan of Treatment Health Maintenance Due Date Last Done Comments HIV SCREENING 2017 MENINGOCOCCAL (Group B) VACC INE SHARED DECISION-MAKING (1 of 2 - Standard) 2018 HEPATITIS C SCREENING 06/13/2020 CHLAMYDIA/GONORRHEA SCREENING 09/07/2021 09/07/2020, 07/14/2020 PAP SMEAR 06/19/2023 DTAP/TDAP/TD VACCINES (6 - T d or Tdap) 10/25/2023 10/24/2013, 01/05/2004, 02/04/2003, Additional history exists DEPRESSION SCREENING 03/27/2024 10/15/2019, 10/15/19 COVID-19 VACCINE (2024-2 6 season) 2024 08/11/2020, 07/21/2020 INFLUENZA VACCINE (#1) 2024 , 05/14/2018, 12/19/2011, Additional history exists ZOSTER VACCINE (1 of 2) 2052 HEPATITIS B VACCINE Completed 02/04/2003, 02/04/2003, 2002, Additional history exists HIB VACCINE Completed 01/05/2004, 12/25, 02/04/2003, Additional history exists PNEUMOCOCCAL VACCINE Completed 01/05/2004, 01/05/2004, 02/04/2003, Additional history exists HPV VACCINE Completed 03/11/2017, 09/01/2016 MENINGOCOCCAL GROUPS A/C/Y/W VACCINE Completed 12/17/2019, 10/24/2013 Goals Goal Patient Goal Type Associated Problems Recent Progress Patient-Stated? Author Reduce calorie intake Diet No Carol Ann Ibanez MD Note: Caring for Your Overweight Child Eating a healthy diet: Think of the food your child eats in terms of GO, SLOW, and WHOA foods. They can enjoy GO foods almost any time they like. Limit SLOW foods to certain occasions, no more than a few times per week. And enjoy WHOA foods only on special occasions, and then eat only a small portion. GO foods include low-fat, low-calorie foods that [...] variety of foods to keep things interesting. SLOW foods tend to be higher in fat and added sugar than GO foods are. Examples include fruit juices, baked goods made with white, refined flour; and poultry cooked with the skin still on. WHOA foods are the highest in fat and added sugar. Foods prepared with heavy creams and butter, fried foods, and fatty meats are examples of foods your child should only eat once in a while. One way to identify unhealthy eating triggers [...] pizza and she could consciously choose to n urse a single slice, even if everyone else grabs two. Where can I go for more information? [place] [employer]s ( ) www.aap.org, HealthyChildren.org www.healthychildren.org Website and free downloadable gene for smartphones: http://www.[employer]/ Use safety retraint in car Lifestyle On [...] Agency Comment Lab Testing performed at: [facility] [address] [place] [id number] Carol Ann Ibanez MD LAB - MICROBIOLOGY ORDERABLES Final Result Performing Organization Address City/State/[facility] Co de Phone Number [facility] ACCOUNT BILL [address] [place] [address] from Last 3 Months or Most Recently Relevant to Health Maintenance Insurance Care Teams Boxing Machine Operator Relationship Specialty Start Date End Date Carol Ann Ibanez MD PCP - Pediatrics 04/03/09 Carol Ann Ibanez MD PCP - General Pediatrics 10/15/19
--- OUTSIDE RECORDS SUMMARY | 2024-12-27 09:58 | XMS_ITS | Clinical Summary ---
Author Organization [facility] o[facility] Address [address] [place] [address] Care Team Providers Care Studio Technician Name Role Phone Carol Ann Ibanez MD Primary Care Provider [phone] Allergies Active Allergy Reactions Criticality Noted Date [...] (12/31/2019): Added automatically from request for surgery [id number] Snoring 12/31/2019 Overview (12/31/2019): Added automatically from request for surgery [id number] Atrial septal defect 02/08/2019 Elevated blood pressure read ing in office without diagnosis of hypertension 10/02/2018 Hypertension 10/02/2018 Depression with anxiety 05/14/2018 Assessment & Plan (05/14/2018 7:48 AM SPECIAL TECHNICAL OPERATIONS OFFICER): Stable. Denies SI/SA. - continue home citalopram Headache 05/14/2018 Assessment & Plan (05/14/2018 7:54 AM SPECIAL TECHNICAL OPERATIONS OFFICER): 17yoF hx sinusitis, fxnl abd pain, depression/anxiety, [...] (status post tonsillectomy and adenoidec [place]) Immunizations Immunization Administration Dates Next Due Influenza, Quadrivalent, Spl [...] on file Legal Sex Female 5:51 AM SPECIAL TECHNICAL OPERATIONS OFFICER Gender Identity Not on file Sexual Orientation Not on file Obstetrics History Last Filed Vital Signs Vital Sign Reading Time Taken Comments Blood Pressure 137/95 06/26/2021 12:00 AM CDT Pulse 70 06/26/2021 12:00 AM CDT Temperature 37.1 C (98.7 F) 06/25/2021 7:09 PM CDT Respiratory Rate 18 06/26/2021 12:00 AM CDT Oxygen Saturation 100% 06/25/2021 7:09 PM CDT Inhaled Oxygen Concentration - - Weight 78 kg (172 lb) 06/25/2021 7:09 PM CDT Height 165.1 cm (5' 5) 06/25/2021 7:09 PM CDT Body Mass Index 28.62 06/25/2021 7:09 PM CDT Plan of Treatment Health Maintenance Due Date Last Done Comments Cervical Cancer Screening 2002 Depression Screening 2002 Hepatitis C Screening 2002 Meningococcal B Vaccine (1 o f 2 - Standard) 2018 Regular Well Visit/Exam 18-64 2020 DTaP/Tdap/Td Vaccine (6 - Td or Tdap) 10/25/2023 10/24/2013, 01/05/2004, 02/04/2003, Additional history exists Covid-19 Vaccine (3 - 2024-2 6 season) 2024 08/11/2020, 07/21/2020 Influenza Vaccine (#1) 2024 0, 05/14/2018, 12/19/2011, Additional history exists Hepatitis B Screening Completed 02/04/2003 , 02/04/2003, 2002, Additional history exists Pneumococcal vaccine <65 Completed 004, 02/04/2003, 2002, Additional history exists Varicella Vaccines Completed 12/23/2010, 11/05/2003 HPV Vaccines Completed 03/11/2017, 09/01/2016 Insurance [facility] CHOICE PLUS CHOICE PLUS CHOICE PLUS Advance Directives For more information, please contact: [phone] * Full Code (Latest Code Status on File) Date Activated Date Inactivated Comments 01/15/2020 5:58 PM 01/16/2020 5:32 PM * Full Code Date Activated Date Inactivated Comments 05/14/2018 6:33 AM 05/14/2018 7:03 PM Care Teams Studio Technician Relationship Specialty Start Date End Date Carol Ann Ibanez MD PCP - General 05/14/18
--- OUTSIDE RECORDS SUMMARY | 2024-12-27 09:58 | XMS_ITS | Clinical Summary ---
Author Organization [facility] Address [address] [place] [address] Care Team Providers Care Pie Crust Mixer Name Role Phone Sita Irving APRN Primary Care Provider [phone] Allergies Active Allergy Reactions Criticality Noted Date Comments Nickel Rash,Other/Unknown (See Comments) High Penicillins Anaphylaxis,Rash High 11/23/2022 Medications busPIRone (BUSPAR) 10 MG tablet Take 1 tablet (10 mg) by mouth 12/26/2022 Active FLUoxetine (PROZAC) 20 MG capsule Take 1 capsule (20 mg) by mouth Nightly 02/06/2023 Active Active Problems Problem Noted Date Diagnosed Date Chronic bilateral low back pain with bilateral s ciatica 07/31/2023 Social History Tobacco Use Types Packs/Day Years Used Date Smoking Tobacco: Never Passive Smoke Exposure: Current Smokeless Tobacco: Never Tobacco Cessation:Counseling Given: Yes Comments No Sex and Gender Information Value Date Recorded Sex Assigned at Not on file Legal Sex Female 2:55 AM CDT Gender Identity Not on file Sexual Orientation Not on file Last Filed Vital Signs Vital Sign Reading Time Taken Comments Blood Pressure 130/76 07/31/2023 2:18 PM CDT Pulse 87 07/31/2023 2:18 PM CDT Temperature - - Respiratory Rate - - Oxygen Saturation 99% 07/31/2023 2:18 PM CDT Inhaled Oxygen Concentration - - Weight 110.7 kg (244 lb) 07/31/2023 2:18 PM CDT Height 165.1 cm (5' 5) 07/31/2023 2:18 PM CDT Body Mass Index 40.6 07/31/2023 2:18 PM CDT Plan of Treatment Health Maintenance Due Date Last Done Comments HIV Screening 2002 Hepatitis C Screening ages 1 8 to 79 once 2002 MMR VACCINES (1 of 1 - Stand gene series) 06/19/2003 YEARLY WELLNESS EXAM 2005 DTaP/Tdap/Td Vaccines (1 - Tdap) 2009 DEPRESSION SCREENING 2014 Varicella Vaccine (1 of 2 - 13+ 2-dose series) 06/19/2015 HPV VACCINES (1 - 3-dose series) 2017 Meningococcal B Vaccine (1 o f 2 - Standard) 2018 ADULT TETANUS 2021 HEPATITIS B VACCINES (1 of 3 - 19+ 3-dose series) 2021 CERVICAL CANCER SCREENING 06/19/2023 Influenza Vaccine 10/25/2024 COVID-19 Immunization (1 - 2 season) 2024 Zoster Vaccine (Recombinant Vaccine) (1 of 2) 2052 HEPATITIS A VACCINES Aged Out No long er eligible based on patient's age to complete this topic HIB VACCINES Aged Out No longer eligi ble based on patient's age to complete this topic IPV VACCINES Aged Out No longer eligi ble based on patient's age to complete this topic MENINGOCOCCAL VACCINE Aged Out No anthony yaya eligible based on patient's age to complete this topic Pneumococcal Vaccine: Peds t o 50 & At-Risk Patients Aged Out No longer eligible b ased on patient's age to complete this topic ROTAVIRUS VACCINES Aged Out No longer eligible based on patient's age to complete [place] [address] Care Teams Pie Crust Mixer Relationship Specialty Start Date End Date Sita Irving APRN [address] [place], [place] [id number] PCP - General Nurse Practitioner 07/31/23
--- NOTE | 2024-12-27 10:25 | ED_ITS ---
HPI - General Adult General Chief complaint: Back Pain/Injury Stated complaint: fall a month ago-pain in back when walking Time Seen by Provider: 12/27/24 10:04 History of Present Illness HPI narrative: 24-year-old female presents to the emergency department for evaluation for lower back pain that radiates down her right leg. Patient reports he fell on some steps approximate 1 month ago and injured her lower back. Patient states she has had pain that radiates down the right leg since then. Patient denies striking head denies loss of consciousness. Patient denies any associated numbness or weakness. Patient denies any loss of bowel or bladder control. Related Data Allergies Allergy/AdvReac Type Severity Reaction Status Date / Time nickel Allergy Unknown Anaphylaxis Verified 12/27/24 10:33 amoxicillin Allergy Anaphylaxis Verified 12/27/24 10:33 Penicillins Allergy Anaphylaxis Verified 12/27/24 10:33 Review of Systems Review of Systems: All systems reviewed & are unremarkable except as noted in HPI and below PMFSH Past Medical History Medical History (Updated 12/27/24 @ 12:29 by Albert Beaver MD) Healthy female adult Surgical History Surgical History (Updated 10/05/21 @ 19:22 by Jesse Abdullahi MD) History of tonsillectomy Exam Narrative: APPEARANCE: Well appearing, no pain, no distress, well-nourished. HEAD: normocephalic, atraumatic. EYES: PERRLA/EOMI, conjunctivae clear. NOSE: Normal no drainage EARS:TMS clear with good light reflex. THROAT: Pharynx clear, no exudate. NECK: Supple. No adenopathy, no masses. RESPIRATORY: Airway patent, respirations nonlabored. Clear to auscultation bilaterally, no rales, rhonchi, wheezing. CARDIOVASCULAR: Regular rate and rhythm without murmurs rubs or gallops. ABDOMINAL: Soft, nontender, nondistended, normal bowel sounds MUSCULOSKELETAL: Right lower back tenderness to palpation with tenderness of the right buttock, negative straight leg test NEURO: Alert. Cranial nerves II through XII intact. Good gait. Good coordination SKIN: Warm, dry. Normal Color Course Vital Signs Vital signs: Vital Signs Blood Pressure 151/93 H 12/27/24 10:03 Pulse Oximetry 100 12/27/24 10:03 Temperature 98 F 12/27/24 12:44 Pulse Rate 80 12/27/24 12:44 Respiratory Rate 16 12/27/24 12:44 Blood Pressure 129/71 12/27/24 12:44 Pulse Oximetry 97 12/27/24 12:44 Oxygen Delivery Room Air 12/27/24 10:33 Medical Decision Making MDM Narrative Medical decision making narrative: 24-year-old female presented emergency department for evaluation for lower back pain. CT scan was negative for acute finding. Patient's symptoms are consistent with sciatica. Patient was started on Medrol Dosepak provided Flexeril for muscle spasm and provided this medication for pain control. Patient was updated results of workup patient was encouraged of close follow-up with her primary care physician. Patient was also educated on reasons to return to the emergency department. All questions concerns were addressed. Differential Diagnosis Differential Diagnosis: Lumbar fracture, sciatica, muscular strain, back contusion Vital Signs Vital Signs: Vital Signs Blood Pressure 151/93 H 12/27/24 10:03 Pulse Oximetry 100 12/27/24 10:03 Temperature 98 F 12/27/24 12:44 Pulse Rate 80 12/27/24 12:44 Respiratory Rate 16 12/27/24 12:44 Blood Pressure 129/71 12/27/24 12:44 Pulse Oximetry 97 12/27/24 12:44 Oxygen Delivery Room Air 12/27/24 10:33 Lab Data Lab results reviewed: Yes I reviewed the patient's lab results. Labs: Lab Results 12/27/24 Range/Units 11:02 POC Urine HCG, Qual Negative (Negative) Imaging Data Radiologist's impression: Impressions Lumbar Spine CT 12/27/24 12:06 IMPRESSION: 1. No fracture. 2. Mild lumbar spondylosis. Discharge Plan Discharge Clinical Impression: Sciatica Patient Disposition: Home Condition: Stable Instructions: Antibiotic Form, Sciatica (ED) Additional Instructions: Ibuprofen for pain control. Medrol Dosepak as directed. Flexeril for muscle spasm. [place] as needed for additional pain control. Have close follow-up with primary care physician. If you have any worsening symptoms then please call or return to the emergency department. Patient Language: Guyanese Prescriptions: New cyclobenzaprine 10 mg tablet 10 mg PO BID PRN (Reason: muscle spasm) Qty: 14 0RF hydrocodone-acetaminophen 5-325 mg tablet 1 tablet PO Q12H PRN (Reason: pain) Qty: 10 0RF methylprednisolone [Medrol ([place])] 4 mg tablets,dose pack See Rx Instructions .ROUTE .COMPLEX Qty: 21 0RF Rx Instructions: for 6 days No Action naproxen 500 mg tablet 500 mg PO BID Qty: 14 0RF prednisone 20 mg tablet 40 mg PO DAILY 5 Days Qty: 10 0RF albuterol sulfate [Ventolin HFA] 90 mcg/actuation HFA aerosol inhaler 2 puff inhalation QID PRN (Reason: shortness of breath or wheezing) Qty: 8.5 0RF Follow-up/Referrals: Renny,Joel Chang MD [Non-Staff, Family Practice]
[2024-12-27] MEDS: KETOROLAC 30 MG/ML VIAL (*BKC) IM (10:41)
[2024-12-27] MEDS: CYCLOBENZAPRINE HCL 10 MG TABLET PO (10:42)
--- OUTSIDE RECORDS SUMMARY | 2024-12-27 11:01 | XMS_ITS | Clinical Summary ---
Author Organization [facility] Address [address] [place] [address] Care Team Providers Care Morning Show Newscast Producer Name Role Phone Carol Ann Ibanez MD Unavailable [phone] Carol Ann Ibanez MD Primary Care Provider [phone] Source Comments [facility],non-owned Affiliates and Associated Physician Practices is amultiple site organization consisting of ambulatory clinics and hospital sitesin [place], [place], [place] and [place]. This disclosure is being madepursuant to the Care Everywhere program and may not contain all information available regarding this patient. Last updated 17.[facility] Allergies Active Allergy Reactions Criticality Noted Date [...] LURIA, FLUZONE TRIVALENT; 6MO+) (IIV3) 12/19/2011,12/23/2010 Covid [facility] [employer] primary monoval ent 12+ yr 0.3mL Purple [...] PM CDT Legal Sex Female 6:45 AM MOTION PICTURE SET GRIP Gender Identity Female 07/03/2020 1:45 PM CDT [...] Where can I go for more information? [employer] ( ) www.aap.org, HealthyChildren.org www.healthychildren.org Website and free downloadable gene for smartphones: http://www.eSight/ Use safety retraint in car Lifestyle On [...] Agency Comment Lab Testing performed at: [facility] [address] [place] [id number] Carol Ann Ibanez MD LAB - MICROBIOLOGY ORDERABLES Final Result Performing Organization Address City/State/[facility] Co de Phone Number [facility] ACCOUNT BILL [address] [place] [address] from Last 3 Months or Most Recently Relevant to Health Maintenance Insurance Care Teams Morning Show Newscast Producer Relationship Specialty Start Date End Date Carol Ann Ibanez MD PCP - Pediatrics 04/03/09 Carol Ann Ibanez MD PCP - General Pediatrics 10/15/19
--- OUTSIDE RECORDS SUMMARY | 2024-12-27 11:01 | XMS_ITS | Clinical Summary ---
Author Organization [facility] Address [address] [place] [address] Care Team Providers Care Clinical Phlebotomist Name Role Phone Carol Ann Ibanez MD Primary Care Provider [phone] Allergies Active Allergy Reactions Criticality Noted Date [...] (12/31/2019): Added automatically from request for surgery [id number] Snoring 12/31/2019 Overview (12/31/2019): Added automatically from request for surgery [id number] Atrial septal defect 02/08/2019 Elevated blood pressure read ing in office without diagnosis of hypertension 10/02/2018 Hypertension 10/02/2018 Depression with anxiety 05/14/2018 Assessment & Plan (05/14/2018 7:48 AM CLOUD INFRASTRUCTURE ARCHITECT): Stable. Denies SI/SA. - continue home citalopram Headache 05/14/2018 Assessment & Plan (05/14/2018 7:54 AM CLOUD INFRASTRUCTURE ARCHITECT): 17yoF hx sinusitis, fxnl abd pain, depression/anxiety, [...] on file Legal Sex Female 5:51 AM CLOUD INFRASTRUCTURE ARCHITECT Gender Identity Not on file Sexual Orientation [...] 11/05/2003 HPV Vaccines Completed 03/11/2017, 09/01/2016 Insurance [facility] Address: [address] [place] [address] [facility] Address: [address] [place] [address] [facility] Address: [facility] [address] [place] [address] Advance Directives For more information, please contact: [phone] * Full Code (Latest Code Status on File) Date Activated Date Inactivated Comments 01/15/2020 5:58 PM 01/16/2020 5:32 PM * Full Code Date Activated Date Inactivated Comments 05/14/2018 6:33 AM 05/14/2018 7:03 PM Care Teams Clinical Phlebotomist Relationship Specialty Start Date End Date Carol Ann Ibanez MD PCP - General 05/14/18
--- OUTSIDE RECORDS SUMMARY | 2024-12-27 11:01 | XMS_ITS | Clinical Summary ---
Author Organization [facility] Address [address] [place] [address] Care Team Providers Care Systems Integration Engineer Name Role Phone Sita Irving APRN Primary Care Provider [phone] Allergies Active Allergy Reactions Criticality Noted Date [...] patient's age to complete this topic Insurance Care Teams Systems Integration Engineer Relationship Specialty Start Date End Date Sita Irving APRN [address] [place], [place] [id number] PCP - General Nurse Practitioner 07/31/23
[2024-12-27 11:04] LABS: BEDSIDEPREGUCG Negative (Negative)
== END 2024-12-27 12:46 | disposition home or self-care (01) ==
PROVIDERS: Emergency Provider Emergency Medicine
DX: M54.30 Sciatica, unspecified side (principal)
CPT/HCPCS: 72131; 81025; 96372; 99284; A9270; J1885